=== PATIENT | male | born 1980 | race Native Hawaiian/Other Pacific Islander ===

== ENCOUNTER 2017-08-17 01:06 | Emergency (ER) | payer MEDICAID ==
[~2017-08-17] VITALS: Ht 175.3 cm; Wt 131.8 kg
[2017-08-17] MEDS ORDERED: LISI-661 PO (01:13)
[2017-08-17] MEDS ORDERED: ATOR20TA86 PO (01:13)
[2017-08-17] MEDS ORDERED: METF500T4 PO (01:13)
[2017-08-17] MEDS ORDERED: INDO25 PO (01:13)
[2017-08-17] MEDS ORDERED: ATOR20TA65 PO (01:13)
[2017-08-17 01:23] LABS: GLUCOSE,POINT OF CARE 194 MG/DL (70-110)
[2017-08-17 01:42] LABS: APPEARANCE,URINE CLEAR (CLEAR); GLUCOSE, URINE (UA) NEGATIVE (NEGATIVE); KETONES,URINE NEGATIVE (NEGATIVE); LEUKOCYTE ESTERASE ,URINE NEGATIVE (NEGATIVE); OCCULT BLOOD,URINE NEGATIVE (NEGATIVE); PROTEIN,URINE NEGATIVE (NEGATIVE)
[2017-08-17 01:43] LABS: BASOPHILS # (AUTO) 0.03 K/uL (0.00-0.20); BASOPHILS % (AUTO) 0.3 % (0.0-2.0); EOSINOPHILS # (AUTO) 0.13 K/uL (0.00-0.70); EOSINOPHILS % (AUTO) 1.28 % (1.0-6.0); HEMOGLOBIN 15.6 g/dL (13.5-17.5); LYMPHOCYTES # (AUTO) 1.8 K/uL (1.0-4.8); LYMPHOCYTES % (AUTO) 17.2 % (22.0-44.0); MEAN CORPUSCULAR HEMOGLOBIN 28.2 pg (26.0-34.0); MEAN CORPUSCULAR HGB CONC 33.9 G/dL (31.0-37.0); MEAN CORPUSCULAR VOLUME 83 fL (80-100); MONOCYTES # (AUTO) 0.7 K/uL (0.1-1.0); MONOCYTES % (AUTO) 6.1 % (2.0-9.0); NEUTROPHILS # (AUTO) 7.9 K/uL (1.8-7.7); NEUTROPHILS % (AUTO) 75.1 % (40.0-70.0); PLATELET COUNT (AUTO) 273 K/uL (150-450); RED BLOOD CELL COUNT(AUTO) 5.52 MIL/uL (4.50-5.90); RED CELL DISTRIBUTION WIDTH 14.9 % (11.5-14.5); WHITE BLOOD COUNT (AUTO) 10.5 K/uL (4.5-11.0)
[2017-08-17 01:44] LABS: ADD UA MICROSCOPIC NO
[2017-08-17 01:57] LABS: CALCIUM, TOTAL 9.5 mg/dL (8.8-10.5); CREATININE 1.34 mg/dL (0.60-1.30); POTASSIUM 4.1 mmol/L (3.5-5.1)
[2017-08-17 02:03] LABS: ALBUMIN 4.3 g/dL (3.4-5.0); BILIRUBIN,TOTAL 0.4 mg/dL (0.1-1.0); TOTAL PROTEIN, SERUM 8.3 g/dL (6.4-8.2)
[2017-08-17] MEDS ORDERED: SODIUM CHLORIDE 0.9% 1,000 ML IV ONE (06:15)
[2017-08-17] MEDS ORDERED: ONDANSETRON HCL 4 MG/2 ML VIAL IVP ONE (06:15)
[2017-08-17 07:39] VITALS: BP 135/90
== END 2017-08-17 07:49 | disposition home or self-care (01) ==
LOC: EMS 01:07
DX: R10.10 Upper abdominal pain, unspecified (principal); R11.2 Nausea with vomiting, unspecified; E78.00 Pure hypercholesterolemia, unspecified; E11.9 Type 2 diabetes mellitus without complications; I10 Essential (primary) hypertension; M19.90 Unspecified osteoarthritis, unspecified site; M10.9 Gout, unspecified
CPT/HCPCS: 36415; 80053; 81003; 82962; 83690; 85025; 96361; 96374; 99284; J2405; J7030

== ENCOUNTER 2018-04-26 12:00 | Emergency (ER) | payer MEDICAID ==
[~2018-04-26] VITALS: Ht 175.3 cm; Wt 118.0 kg
[~2018-04-26 12:00] MED LIST: ATOR20TA65 PO; ATOR20TA86 PO; INDO25 PO; LISI-661 PO; METF500T6 PO
[2018-04-26] MEDS ORDERED: PROB500T26 PO (12:17)
[2018-04-26] MEDS ORDERED: SUCR1TAB PO (12:17)
[2018-04-26] MEDS ORDERED: ALBU0.212 IH (12:17)
[2018-04-26] MEDS ORDERED: OMEP10 PO (12:17)
[2018-04-26] MEDS ORDERED: COLC0.6T67 PO (12:19)
[2018-04-26] MEDS ORDERED: KETOROLAC TROMETHAMINE 30 MG/ML VIAL IVP ONE (12:30)
[2018-04-26] MEDS ORDERED: SODIUM CHLORIDE 0.9% 1,000 ML IV ONE (12:30)
[2018-04-26 12:45] LABS: BASOPHILS % (AUTO) 0.3 % (0.0-2.0); EOSINOPHILS % (AUTO) 0.3 % (1.0-6.0); HEMATOCRIT 48.2 % (41-53); HEMOGLOBIN 16.3 g/dL (13.5-17.5); LYMPHOCYTES % (AUTO) 11.5 % (22.0-44.0); MEAN CORPUSCULAR HEMOGLOBIN 28.2 pg (26.0-34.0); MEAN CORPUSCULAR HGB CONC 33.9 G/dL (31.0-37.0); MEAN CORPUSCULAR VOLUME 83 fL (80-100); MONOCYTES # (AUTO) 0.2 K/uL (0.1-1.0); MONOCYTES % (AUTO) 2.3 % (2.0-9.0); NEUTROPHILS # (AUTO) 7.3 K/uL (1.8-7.7); PLATELET COUNT (AUTO) 268 K/uL (150-450); RED BLOOD CELL COUNT(AUTO) 5.79 MIL/uL (4.50-5.90); RED CELL DISTRIBUTION WIDTH 15.1 % (11.5-14.5)
[2018-04-26] MEDS ORDERED: ONDANSETRON HCL 4 MG/2 ML VIAL IVP ONE (12:45)
[2018-04-26 12:58] LABS: NEUTROPHILS % (AUTO) 85.6 % (40.0-70.0)
[2018-04-26 13:12] LABS: ANION GAP 9 mmol/L (8-16); CALCIUM, TOTAL 9.2 mg/dL (8.8-10.5); CARBON DIOXIDE 29 mmol/L (22-29); CHLORIDE 102 mmol/L (98-107); CREATININE 1.06 mg/dL (0.60-1.30); GLOMERULAR FILTR. RATE CALC > 60 mL/min (>60); GLUCOSE,RANDOM 132 mg/dL (70-110); POTASSIUM 4.5 mmol/L (3.5-5.1); SODIUM SERUM 140 mmol/L (136-145); UREA NITROGEN, BLOOD 15 mg/dL (7-18)
[2018-04-26 13:19] LABS: ALANINE AMINOTRANSFERASE 29 U/L (12-78); ALBUMIN 4.2 g/dL (3.4-5.0); ALKALINE PHOSPHATASE 105 U/L (46-116); ASPARTATE AMINOTRANSFERASE 22 U/L (15-37); BILIRUBIN,TOTAL 0.6 mg/dL (0.1-1.0); LIPASE 224 U/L (73-393); TOTAL PROTEIN, SERUM 8.3 g/dL (6.4-8.2)
[2018-04-26 13:29] VITALS: BP 148/88
[2018-04-26] MEDS ORDERED: ONDANSETRON HCL 4 MG TABLET PO ONE (14:00)
== END 2018-04-26 14:08 | disposition home or self-care (01) ==
LOC: EMS 12:02
DX: K29.70 Gastritis, unspecified, without bleeding (principal); I10 Essential (primary) hypertension; E78.00 Pure hypercholesterolemia, unspecified; E11.9 Type 2 diabetes mellitus without complications
CPT/HCPCS: 36415; 76705; 80053; 83690; 85025; 96374; 96375; 99285; J1885; J2405; J7030; Q0162

== ENCOUNTER 2018-05-04 13:18 | Emergency (ER) | payer MEDICAID ==
[~2018-05-04] VITALS: Ht 175.3 cm; Wt 118.2 kg
[~2018-05-04 13:18] MED LIST changes: +ALBU0.212 IH; +COLC0.6T67 PO; +OMEP10 PO; +PROB500T26 PO; +SUCR1TAB PO
[2018-05-04] MEDS ORDERED: ONDANSETRON HCL 4 MG/2 ML VIAL IVP ONE (15:00)
[2018-05-04 16:00] LABS: BASOPHILS % (AUTO) 0.8 % (0.0-2.0); EOSINOPHILS % (AUTO) 0.5 % (1.0-6.0); HEMATOCRIT 48.9 % (41-53); HEMOGLOBIN 16.3 g/dL (13.5-17.5); LYMPHOCYTES # (AUTO) 1.1 K/uL (1.0-4.8); LYMPHOCYTES % (AUTO) 12.7 % (22.0-44.0); MEAN CORPUSCULAR HEMOGLOBIN 28.2 pg (26.0-34.0); MEAN CORPUSCULAR HGB CONC 33.4 G/dL (31.0-37.0); MEAN CORPUSCULAR VOLUME 84 fL (80-100); MONOCYTES # (AUTO) 0.3 K/uL (0.1-1.0); MONOCYTES % (AUTO) 3.9 % (2.0-9.0); NEUTROPHILS % (AUTO) 82.1 % (40.0-70.0); PLATELET COUNT (AUTO) 275 K/uL (150-450); RED BLOOD CELL COUNT(AUTO) 5.79 MIL/uL (4.50-5.90); RED CELL DISTRIBUTION WIDTH 15.4 % (11.5-14.5)
[2018-05-04 16:07] LABS: ANION GAP 6 mmol/L (8-16); CARBON DIOXIDE 29 mmol/L (22-29); CHLORIDE 104 mmol/L (98-107); CREATININE 1.06 mg/dL (0.60-1.30); GLOMERULAR FILTR. RATE CALC > 60 mL/min (>60); GLUCOSE,RANDOM 128 mg/dL (70-110); POTASSIUM 4.2 mmol/L (3.5-5.1); SODIUM SERUM 139 mmol/L (136-145); UREA NITROGEN, BLOOD 20 mg/dL (7-18)
[2018-05-04 16:13] LABS: ALANINE AMINOTRANSFERASE 30 U/L (12-78); ALBUMIN 4.2 g/dL (3.4-5.0); ALKALINE PHOSPHATASE 100 U/L (46-116); ASPARTATE AMINOTRANSFERASE 25 U/L (15-37); BILIRUBIN,TOTAL 0.9 mg/dL (0.1-1.0); LIPASE 198 U/L (73-393); TOTAL PROTEIN, SERUM 8.3 g/dL (6.4-8.2)
[2018-05-04 17:10] VITALS: BP 140/84
== END 2018-05-04 17:18 | disposition home or self-care (01) ==
LOC: EMS 13:20
DX: K29.70 Gastritis, unspecified, without bleeding (principal); I10 Essential (primary) hypertension; E11.9 Type 2 diabetes mellitus without complications; E78.00 Pure hypercholesterolemia, unspecified
CPT/HCPCS: 36415; 80053; 83690; 85025; 96374; 99284; J2405

== ENCOUNTER 2018-05-09 12:35 | Emergency (ER) | payer MEDICAID ==
[~2018-05-09] VITALS: Ht 175.3 cm; Wt 118.2 kg
[~2018-05-09 12:35] MED LIST changes: -ATOR20TA65 PO
[2018-05-09 12:53] LABS: GLUCOSE,POINT OF CARE 119 MG/DL (70-110)
[2018-05-09] MEDS ORDERED: GuaiFENesin/D-METHORPHAN [SUGAR-FREE] 200-20MG/10 ML SYRUP UDCUP PO ONE (13:45)
[2018-05-09 14:22] VITALS: BP 120/66
== END 2018-05-09 14:27 | disposition home or self-care (01) ==
LOC: EMS 12:36
DX: J06.9 Acute upper respiratory infection, unspecified (principal); H61.112 Acquired deformity of pinna, left ear; F17.210 Nicotine dependence, cigarettes, uncomplicated; F12.10 Cannabis abuse, uncomplicated; I10 Essential (primary) hypertension; E11.9 Type 2 diabetes mellitus without complications; M19.90 Unspecified osteoarthritis, unspecified site; E78.00 Pure hypercholesterolemia, unspecified; Z79.899 Other long term (current) drug therapy
CPT/HCPCS: 99283

== ENCOUNTER 2018-05-11 11:16 | Emergency (ER) | payer MEDICAID ==
[~2018-05-11] VITALS: Ht 175.3 cm; Wt 118.2 kg
[2018-05-11] MEDS ORDERED: DiphenhydrAMINE HCL 50 MG/ML VIAL IVP ONE (11:30)
[2018-05-11] MEDS ORDERED: SODIUM CHLORIDE 0.9% 1,000 ML IV ONE (11:30)
[2018-05-11] MEDS ORDERED: PB/HYOSCY/ATR/SCOP/LIDO/MAALOX 55 ML BOTTLE PO ONE (11:30)
[2018-05-11] MEDS ORDERED: HALOPERIDOL LACTATE 5 MG/ML VIAL IVP ONE (11:30)
[2018-05-11 11:36] LABS: BASOPHILS % (AUTO) 0.4 % (0.0-2.0); EOSINOPHILS % (AUTO) 0.7 % (1.0-6.0); HEMOGLOBIN 15.4 g/dL (13.5-17.5); LYMPHOCYTES # (AUTO) 0.9 K/uL (1.0-4.8); LYMPHOCYTES % (AUTO) 9.8 % (22.0-44.0); MEAN CORPUSCULAR HEMOGLOBIN 28.4 pg (26.0-34.0); MEAN CORPUSCULAR HGB CONC 33.5 G/dL (31.0-37.0); MEAN CORPUSCULAR VOLUME 85 fL (80-100); MONOCYTES # (AUTO) 0.5 K/uL (0.1-1.0); MONOCYTES % (AUTO) 5.3 % (2.0-9.0); NEUTROPHILS # (AUTO) 7.7 K/uL (1.8-7.7); NEUTROPHILS % (AUTO) 83.8 % (40.0-70.0); PLATELET COUNT (AUTO) 244 K/uL (150-450); RED BLOOD CELL COUNT(AUTO) 5.43 MIL/uL (4.50-5.90); RED CELL DISTRIBUTION WIDTH 15.9 % (11.5-14.5)
[2018-05-11 11:46] LABS: ANION GAP 6 mmol/L (8-16); CALCIUM, TOTAL 9.4 mg/dL (8.8-10.5); CARBON DIOXIDE 29 mmol/L (22-29); CHLORIDE 103 mmol/L (98-107); CREATININE 1.13 mg/dL (0.60-1.30); GLOMERULAR FILTR. RATE CALC > 60 mL/min (>60); GLUCOSE,RANDOM 139 mg/dL (70-110); SODIUM SERUM 138 mmol/L (136-145); UREA NITROGEN, BLOOD 19 mg/dL (7-18)
[2018-05-11 11:52] LABS: ALANINE AMINOTRANSFERASE 33 U/L (12-78); ALBUMIN 4.1 g/dL (3.4-5.0); ALKALINE PHOSPHATASE 106 U/L (46-116); ASPARTATE AMINOTRANSFERASE 27 U/L (15-37); BILIRUBIN,TOTAL 0.8 mg/dL (0.1-1.0); LIPASE 286 U/L (73-393); TOTAL PROTEIN, SERUM 8.2 g/dL (6.4-8.2)
[2018-05-11 14:15] LABS: APPEARANCE,URINE CLEAR (CLEAR); BILIRUBIN,URINE NEGATIVE (NEGATIVE); GLUCOSE, URINE (UA) NEGATIVE (NEGATIVE); KETONES,URINE TRACE mg/dL (NEGATIVE); LEUKOCYTE ESTERASE ,URINE NEGATIVE (NEGATIVE); NITRATE,URINE NEGATIVE (NEGATIVE); OCCULT BLOOD,URINE NEGATIVE (NEGATIVE); PH,URINE 5.5 (5.0-8.0); PROTEIN,URINE NEGATIVE (NEGATIVE); UROBILINOGEN,URINE 0.2 mg/dL (<=1.0)
[2018-05-11 14:17] LABS: AMPHET/METH SCREEN,URINE NEGATIVE (NEGATIVE); BARBITURATE SCREEN, URINE NEGATIVE (NEGATIVE); BENZODIAZEPINES SCREEN,URINE NEGATIVE (NEGATIVE); CANNABINOID SCREEN,URINE POSITIVE (NEGATIVE); COCAINE SCREEN,URINE NEGATIVE (NEGATIVE); METHADONE SCREEN, URINE NEGATIVE (NEGATIVE); OPIATE SCREEN,URINE NEGATIVE (NEGATIVE)
[2018-05-11 14:19] LABS: PHENCYCLIDINE SCREEN,URINE NEGATIVE (NEGATIVE)
[2018-05-11 14:43] VITALS: BP 113/82
== END 2018-05-11 15:04 | disposition home or self-care (01) ==
LOC: EMS 11:24
DX: K29.70 Gastritis, unspecified, without bleeding (principal); F41.9 Anxiety disorder, unspecified; R11.2 Nausea with vomiting, unspecified; F12.90 Cannabis use, unspecified, uncomplicated; F17.210 Nicotine dependence, cigarettes, uncomplicated; E11.9 Type 2 diabetes mellitus without complications; E78.00 Pure hypercholesterolemia, unspecified; I10 Essential (primary) hypertension; M19.90 Unspecified osteoarthritis, unspecified site
CPT/HCPCS: 36415; 80053; 80307; 81003; 83690; 85025; 96361; 96374; 96375; 99285; 99406; J1200; J1630; J7030; Z7610

== ENCOUNTER 2018-05-21 14:48 | Emergency (ER) | payer MEDICAID ==
[~2018-05-21] VITALS: Ht 175.3 cm; Wt 113.6 kg
[~2018-05-21 14:48] MED LIST changes: -ALBU0.212 IH; +ALBU0.212 NEB
[2018-05-21 15:32] LABS: BASOPHILS % (AUTO) 0.6 % (0.0-2.0); EOSINOPHILS % (AUTO) 0.6 % (1.0-6.0); HEMATOCRIT 48.7 % (41-53); HEMOGLOBIN 16.8 g/dL (13.5-17.5); LYMPHOCYTES # (AUTO) 1.5 K/uL (1.0-4.8); LYMPHOCYTES % (AUTO) 14.5 % (22.0-44.0); MEAN CORPUSCULAR HEMOGLOBIN 28.9 pg (26.0-34.0); MEAN CORPUSCULAR HGB CONC 34.4 G/dL (31.0-37.0); MEAN CORPUSCULAR VOLUME 84 fL (80-100); MONOCYTES # (AUTO) 0.6 K/uL (0.1-1.0); MONOCYTES % (AUTO) 6.5 % (2.0-9.0); NEUTROPHILS # (AUTO) 7.8 K/uL (1.8-7.7); NEUTROPHILS % (AUTO) 77.8 % (40.0-70.0); PLATELET COUNT (AUTO) 282 K/uL (150-450)
[2018-05-21] MEDS ORDERED: OMEP20 PO (15:43)
[2018-05-21] MEDS ORDERED: ATOR40TA28 PO (15:43)
[2018-05-21] MEDS ORDERED: LISI-662 PO (15:43)
[2018-05-21 15:45] LABS: ANION GAP 7 mmol/L (8-16); CALCIUM, TOTAL 9.3 mg/dL (8.8-10.5); CARBON DIOXIDE 30 mmol/L (22-29); CHLORIDE 99 mmol/L (98-107); CREATININE 1.11 mg/dL (0.60-1.30); GLOMERULAR FILTR. RATE CALC > 60 mL/min (>60); GLUCOSE,RANDOM 121 mg/dL (70-110); POTASSIUM 3.3 mmol/L (3.5-5.1); SODIUM SERUM 136 mmol/L (136-145); UREA NITROGEN, BLOOD 10 mg/dL (7-18)
[2018-05-21] MEDS ORDERED: METOCLOPRAMIDE HCL 5 MG/ML 2 ML VIAL IVP ONE (15:45)
[2018-05-21] MEDS ORDERED: KETOROLAC TROMETHAMINE 30 MG/ML VIAL IVP ONE (15:45)
[2018-05-21 16:09] LABS: ALANINE AMINOTRANSFERASE 33 U/L (12-78); ALKALINE PHOSPHATASE 107 U/L (46-116); ASPARTATE AMINOTRANSFERASE 41 U/L (15-37); BILIRUBIN,TOTAL 1.3 mg/dL (0.1-1.0); CREATINE KINASE MB 1.3 ng/mL (0-5); CREATINE KINASE, TOTAL 368 U/L (39-308); LIPASE 143 U/L (73-393); TOTAL PROTEIN, SERUM 8.1 g/dL (6.4-8.2)
[2018-05-21] MEDS ORDERED: SODIUM CHLORIDE 0.9% 1,000 ML IV ONE (16:45)
[2018-05-21] MEDS ORDERED: POTASSIUM CHLORIDE 20 MEQ ER TABLET PO ONE (17:00)
[2018-05-21 17:22] VITALS: BP 107/59
== END 2018-05-21 17:44 | disposition home or self-care (01) ==
LOC: EMS 14:50
DX: R11.2 Nausea with vomiting, unspecified (principal); E11.9 Type 2 diabetes mellitus without complications; E78.00 Pure hypercholesterolemia, unspecified; I10 Essential (primary) hypertension; F17.210 Nicotine dependence, cigarettes, uncomplicated; F12.90 Cannabis use, unspecified, uncomplicated
CPT/HCPCS: 71045; 80053; 82550; 82553; 82962; 83690; 84484; 85025; 93005; 96361; 96374; 96375; 99285; J1885; J2765; J7030; 29515

== ENCOUNTER 2018-05-21 22:26 | Inpatient (IN) | payer MEDICAID ==
[~2018-05-21] VITALS: Ht 175.3 cm; Wt 113.6 kg
[~2018-05-21 22:26] MED LIST changes: +ATOR40TA28 PO; +LISI-662 PO; +OMEP20 PO
[2018-05-21 23:43] LABS: GLUCOSE,POINT OF CARE 115 MG/DL (70-110)
[2018-05-22] MEDS ORDERED: MAGNESIUM HYDROXIDE SUSPENSION 30 ML UDCUP PO PRN (02:00)
[2018-05-22] MEDS ORDERED: MAG HYDROX/AL HYDROX/SIMETH ES 30 ML SUSPENSION UDCUP PO PRN (02:00)
[2018-05-22] MEDS ORDERED: ACETAMINOPHEN 325 MG TABLET PO PRN (02:00)
[2018-05-22] MEDS ORDERED: MAG HYDROX/AL HYDROX/SIMETH ES 30 ML SUSPENSION UDCUP PO ONE (02:15)
[2018-05-22] MEDS ORDERED: LORazepam 2 MG TABLET PO ONE (02:15)
[2018-05-22] MEDS ORDERED: DiphenhydrAMINE HCL 25 MG CAPSULE PO ONE (02:15)
[2018-05-22 02:24] LABS: BASOPHILS % (AUTO) 0.8 % (0.0-2.0); EOSINOPHILS % (AUTO) 0.9 % (1.0-6.0); HEMATOCRIT 47.6 % (41-53); LYMPHOCYTES # (AUTO) 2.6 K/uL (1.0-4.8); LYMPHOCYTES % (AUTO) 26.1 % (22.0-44.0); MEAN CORPUSCULAR HEMOGLOBIN 28.9 pg (26.0-34.0); MEAN CORPUSCULAR HGB CONC 33.7 G/dL (31.0-37.0); MEAN CORPUSCULAR VOLUME 86 fL (80-100); MONOCYTES # (AUTO) 0.7 K/uL (0.1-1.0); MONOCYTES % (AUTO) 7.2 % (2.0-9.0); NEUTROPHILS # (AUTO) 6.5 K/uL (1.8-7.7); PLATELET COUNT (AUTO) 274 K/uL (150-450); RED BLOOD CELL COUNT(AUTO) 5.56 MIL/uL (4.50-5.90)
[2018-05-22 02:31] LABS: ANION GAP 3 mmol/L (8-16); CARBON DIOXIDE 35 mmol/L (22-29); CHLORIDE 100 mmol/L (98-107); CREATININE 1.27 mg/dL (0.60-1.30); GLOMERULAR FILTR. RATE CALC > 60 mL/min (>60); GLUCOSE,RANDOM 117 mg/dL (70-110); POTASSIUM 3.4 mmol/L (3.5-5.1); SODIUM SERUM 138 mmol/L (136-145); UREA NITROGEN, BLOOD 11 mg/dL (7-18)
[2018-05-22 02:37] LABS: ALANINE AMINOTRANSFERASE 32 U/L (12-78); ALKALINE PHOSPHATASE 102 U/L (46-116); ASPARTATE AMINOTRANSFERASE 36 U/L (15-37); TOTAL PROTEIN, SERUM 7.9 g/dL (6.4-8.2)
[2018-05-22] MEDS ORDERED: POTASSIUM CHLORIDE 10% 40 MEQ/30 ML LIQUID UDCUP PO ONE (02:45)
[2018-05-22 10:15] VITALS: BP 123/91
[2018-05-22] MEDS: LORazepam 2 MG TABLET PO PRN ×2 (10:34→20:34)
[2018-05-22] MEDS ORDERED: ALBUTEROL SULFATE HFA 90 MCG/PUFF 8 GM INHALER IH PRN (14:30)
[2018-05-22] MEDS: SERTRALINE HCL 50 MG TABLET PO SCH (14:45)
[2018-05-22] MEDS: BusPIRone HCL 10 MG TABLET PO SCH (14:46)
[2018-05-22] MEDS: MetFORMIN HCL 500 MG TABLET PO SCH (17:25)
[2018-05-22 17:35] LABS: GLUCOSE,POINT OF CARE 95 MG/DL (70-110)
[2018-05-22] MEDS ORDERED: PROBENECID 500 MG TABLET PO SCH (19:36)
[2018-05-22 20:22] VITALS: BP 155/92
[2018-05-22] MEDS: COLCHICINE 0.6 MG TABLET PO SCH (20:34)
[2018-05-22] MEDS: HALOPERIDOL 5 MG TABLET PO PRN (20:35)
[2018-05-22] MEDS: ATORVASTATIN CALCIUM 40 MG TABLET PO SCH (20:59)
[2018-05-22] MEDS: ZOLPIDEM TARTRATE 10 MG TABLET PO PRN (22:44)
[2018-05-23] MEDS: HALOPERIDOL 5 MG TABLET PO PRN (04:01)
[2018-05-23] MEDS: LORazepam 2 MG TABLET PO PRN ×3 (04:02→23:47)
[2018-05-23 05:55] LABS: GLUCOMETER DEV NAME(LOC) 3EI B; GLUCOSE,POINT OF CARE 96 MG/DL (70-110)
[2018-05-23 06:10] LABS: CHOL/HDL RATIO 3.4 (4.2-7.3)
[2018-05-23] MEDS: MetFORMIN HCL 500 MG TABLET PO SCH ×2 (06:49→19:45)
[2018-05-23] MEDS: PROBENECID 500 MG TABLET PO SCH ×2 (09:00→16:14)
[2018-05-23] MEDS: OMEPRAZOLE 20 MG CAPSULE PO SCH (09:14)
[2018-05-23] MEDS: COLCHICINE 0.6 MG TABLET PO SCH ×2 (09:14→16:14)
[2018-05-23] MEDS: SERTRALINE HCL 50 MG TABLET PO SCH (09:15)
[2018-05-23] MEDS: BusPIRone HCL 10 MG TABLET PO SCH ×2 (09:15→16:35)
[2018-05-23] MEDS: LISINOPRIL 20 MG TABLET PO SCH (09:15)
[2018-05-23 10:11] VITALS: BP 139/92
[2018-05-23] MEDS ORDERED: MAGNESIUM HYDROXIDE SUSPENSION 30 ML UDCUP PO PRN (13:45)
[2018-05-23] MEDS ORDERED: ONDANSETRON HCL 4 MG TABLET PO PRN (13:45)
[2018-05-23] MEDS ORDERED: ACETAMINOPHEN 325 MG TABLET PO PRN (13:45)
[2018-05-23] MEDS ORDERED: MAG HYDROX/AL HYDROX/SIMETH ES 30 ML SUSPENSION UDCUP PO PRN (13:45)
[2018-05-23] MEDS ORDERED: POTASSIUM CHLORIDE 20 MEQ ER TABLET PO ONE (13:45)
[2018-05-23] MEDS ORDERED: PETROLATUM,WHITE 71 GM JELLY TP PRN (13:45)
[2018-05-23] MEDS ORDERED: DOCUSATE SODIUM 100 MG CAPSULE PO PRN (13:45)
[2018-05-23 16:22] LABS: GLUCOMETER DEV NAME(LOC) 3EI B; GLUCOSE,POINT OF CARE 126 MG/DL (70-110)
[2018-05-23 18:22] VITALS: BP 138/92
[2018-05-23] MEDS: ATORVASTATIN CALCIUM 40 MG TABLET PO SCH (20:07)
[2018-05-23] MEDS: ZOLPIDEM TARTRATE 10 MG TABLET PO PRN (20:08)
[2018-05-23 23:56] VITALS: BP 137/84
[2018-05-24 06:41] LABS: GLUCOMETER DEV NAME(LOC) 3EI B; GLUCOSE,POINT OF CARE 91 MG/DL (70-110)
[2018-05-24] MEDS: MetFORMIN HCL 500 MG TABLET PO SCH ×4 (07:04→18:15)
[2018-05-24] MEDS: SERTRALINE HCL 50 MG TABLET PO SCH (08:17)
[2018-05-24] MEDS: PROBENECID 500 MG TABLET PO SCH ×2 (08:17→16:39)
[2018-05-24] MEDS: OMEPRAZOLE 20 MG CAPSULE PO SCH (08:17)
[2018-05-24] MEDS: COLCHICINE 0.6 MG TABLET PO SCH ×2 (08:17→16:39)
[2018-05-24] MEDS: BusPIRone HCL 10 MG TABLET PO SCH ×2 (08:17→16:39)
[2018-05-24] MEDS: LISINOPRIL 20 MG TABLET PO SCH (08:17)
[2018-05-24] MEDS: LORazepam 2 MG TABLET PO PRN ×2 (08:19→12:42)
[2018-05-24] MEDS: HALOPERIDOL 5 MG TABLET PO PRN ×2 (08:19→12:42)
[2018-05-24] MEDS: NICOTINE 14 MG/24 HOUR PATCH TD SCH (09:00)
[2018-05-24 10:11] VITALS: BP 139/97
[2018-05-24 16:44] LABS: GLUCOMETER DEV NAME(LOC) 3EI B; GLUCOSE,POINT OF CARE 101 MG/DL (70-110)
[2018-05-24] MEDS: ATORVASTATIN CALCIUM 40 MG TABLET PO SCH (20:57)
[2018-05-25] MEDS: HALOPERIDOL 5 MG TABLET PO PRN (00:24)
[2018-05-25] MEDS: LORazepam 2 MG TABLET PO PRN (00:24)
[2018-05-25 06:04] LABS: GLUCOMETER DEV NAME(LOC) 3EI B; GLUCOSE,POINT OF CARE 109 MG/DL (70-110)
[2018-05-25] MEDS: MetFORMIN HCL 500 MG TABLET PO SCH (06:44)
[2018-05-25] MEDS: OMEPRAZOLE 20 MG CAPSULE PO SCH (09:01)
[2018-05-25] MEDS: LISINOPRIL 20 MG TABLET PO SCH (09:01)
[2018-05-25] MEDS: COLCHICINE 0.6 MG TABLET PO SCH (09:02)
[2018-05-25] MEDS: NICOTINE 14 MG/24 HOUR PATCH TD SCH (09:02)
[2018-05-25] MEDS: PROBENECID 500 MG TABLET PO SCH (09:02)
[2018-05-25] MEDS: SERTRALINE HCL 50 MG TABLET PO SCH (09:02)
[2018-05-25] MEDS: BusPIRone HCL 10 MG TABLET PO SCH (09:03)
[2018-05-25 10:00] VITALS: BP 119/76
[2018-05-25] MEDS ORDERED: SERT50TA12 PO (10:31)
[2018-05-25] MEDS ORDERED: BUSP10TA23 PO (10:37)
== END 2018-05-25 13:00 | disposition home or self-care (01) | DRG 754 ==
LOC: EMS 22:27 → AHU 05-22 08:41 → 3EI 05-22 19:00
PROVIDERS: ADMIT Psychiatry & Neurology Psychiatry; ATTEND Psychiatry & Neurology Psychiatry
DX: F32.9 Major depressive disorder, single episode, unspecified (principal); E11.9 Type 2 diabetes mellitus without complications; R45.851 Suicidal ideations; I10 Essential (primary) hypertension; E78.5 Hyperlipidemia, unspecified; E78.00 Pure hypercholesterolemia, unspecified; E87.6 Hypokalemia; F12.90 Cannabis use, unspecified, uncomplicated; F41.9 Anxiety disorder, unspecified; G47.33 Obstructive sleep apnea (adult) (pediatric); F17.210 Nicotine dependence, cigarettes, uncomplicated; J45.909 Unspecified asthma, uncomplicated; K21.9 Gastro-esophageal reflux disease without esophagitis; K29.70 Gastritis, unspecified, without bleeding; M10.9 Gout, unspecified; M19.90 Unspecified osteoarthritis, unspecified site; Z88.5 Allergy status to narcotic agent; Z79.899 Other long term (current) drug therapy
CPT/HCPCS: 94660; 99285; G0480

== ENCOUNTER 2018-06-01 19:27 | Emergency (ER) | payer MEDICAID ==
[~2018-06-01] VITALS: Ht 175.3 cm; Wt 112.0 kg
[~2018-06-01 19:27] MED LIST changes: -ALBU0.212 NEB; -ATOR20TA86 PO; +BUSP10TA23 PO; -INDO25 PO; -LISI-661 PO; -OMEP10 PO; +SERT50TA12 PO; -SUCR1TAB PO
[2018-06-01 20:14] LABS: GLUCOSE,POINT OF CARE 140 MG/DL (70-110)
[2018-06-01 20:26] LABS: BASOPHILS % (AUTO) 0.3 % (0.0-2.0); EOSINOPHILS % (AUTO) 0.1 % (1.0-6.0); HEMATOCRIT 47.7 % (41-53); HEMOGLOBIN 16.2 g/dL (13.5-17.5); LYMPHOCYTES # (AUTO) 0.7 K/uL (1.0-4.8); LYMPHOCYTES % (AUTO) 7.3 % (22.0-44.0); MEAN CORPUSCULAR HEMOGLOBIN 28.8 pg (26.0-34.0); MEAN CORPUSCULAR VOLUME 85 fL (80-100); MONOCYTES # (AUTO) 0.2 K/uL (0.1-1.0); MONOCYTES % (AUTO) 1.7 % (2.0-9.0); NEUTROPHILS # (AUTO) 8.5 K/uL (1.8-7.7); PLATELET COUNT (AUTO) 280 K/uL (150-450); RED BLOOD CELL COUNT(AUTO) 5.64 MIL/uL (4.50-5.90); RED CELL DISTRIBUTION WIDTH 15.4 % (11.5-14.5)
[2018-06-01 20:29] LABS: NEUTROPHILS % (AUTO) 90.6 % (40.0-70.0)
[2018-06-01 20:37] LABS: ANION GAP 12 mmol/L (8-16); CALCIUM, TOTAL 9.8 mg/dL (8.8-10.5); CARBON DIOXIDE 24 mmol/L (22-29); CHLORIDE 101 mmol/L (98-107); CREATININE 1.02 mg/dL (0.60-1.30); GLOMERULAR FILTR. RATE CALC > 60 mL/min (>60); GLUCOSE,RANDOM 143 mg/dL (70-110); POTASSIUM 3.9 mmol/L (3.5-5.1); SODIUM SERUM 137 mmol/L (136-145); UREA NITROGEN, BLOOD 21 mg/dL (7-18)
[2018-06-01 20:43] LABS: ALANINE AMINOTRANSFERASE 44 U/L (12-78); ALBUMIN 4.2 g/dL (3.4-5.0); ALKALINE PHOSPHATASE 99 U/L (46-116); ASPARTATE AMINOTRANSFERASE 32 U/L (15-37); BILIRUBIN,TOTAL 0.7 mg/dL (0.1-1.0); LIPASE 108 U/L (73-393); TOTAL PROTEIN, SERUM 8.2 g/dL (6.4-8.2)
[2018-06-01] MEDS ORDERED: METOCLOPRAMIDE HCL 5 MG/ML 2 ML VIAL IVP ONE (21:15)
[2018-06-01] MEDS ORDERED: SODIUM CHLORIDE 0.9% 1,000 ML IV ONE (21:15)
[2018-06-01] MEDS ORDERED: ONDANSETRON HCL 4 MG/2 ML VIAL IVP ONE ×2 (22:15→23:00)
[2018-06-01 22:22] LABS: APPEARANCE,URINE CLEAR (CLEAR); BILIRUBIN,URINE NEGATIVE (NEGATIVE); GLUCOSE, URINE (UA) NEGATIVE (NEGATIVE); KETONES,URINE >=80 mg/dL (NEGATIVE); LEUKOCYTE ESTERASE ,URINE NEGATIVE (NEGATIVE); NITRATE,URINE NEGATIVE (NEGATIVE); OCCULT BLOOD,URINE NEGATIVE (NEGATIVE); PROTEIN,URINE NEGATIVE (NEGATIVE)
[2018-06-01] MEDS ORDERED: KETOROLAC TROMETHAMINE 30 MG/ML VIAL IVP ONE (23:00)
[2018-06-02 00:37] VITALS: BP 138/77
== END 2018-06-02 01:10 | disposition home or self-care (01) ==
LOC: EMS 19:28
DX: R11.2 Nausea with vomiting, unspecified (principal); R10.84 Generalized abdominal pain; R00.0 Tachycardia, unspecified
CPT/HCPCS: 36415; 80053; 81003; 82962; 83690; 85025; 93005; 96361; 96374; 96375; 96376; 99285; J1885; J2405; J2765; J7030

== ENCOUNTER 2018-06-02 01:10 | Emergency (ER) | payer MEDICAID | END 2018-06-02 02:30 | disposition left against medical advice (07) | LOC: EMS 01:12 | DX: Z53.21 Procedure and treatment not carried out due to patient leaving prior to being seen by health care provider (principal) ==

== ENCOUNTER 2018-06-03 09:51 | Emergency (ER) | payer MEDICAID ==
[~2018-06-03] VITALS: Ht 175.3 cm; Wt 113.6 kg
[2018-06-03 10:09] LABS: GLUCOSE,POINT OF CARE 131 MG/DL (70-110)
[2018-06-03] MEDS ORDERED: SODIUM CHLORIDE 0.9% 1,000 ML IV ONE (10:30)
[2018-06-03] MEDS ORDERED: METOCLOPRAMIDE HCL 5 MG/ML 2 ML VIAL IVP ONE (10:30)
[2018-06-03] MEDS ORDERED: FentaNYL CITRATE-PF 100 MCG/2 ML VIAL IVP ONE (10:30)
[2018-06-03 10:36] LABS: BASOPHILS % (AUTO) 0.9 % (0.0-2.0); EOSINOPHILS % (AUTO) 1.2 % (1.0-6.0); HEMATOCRIT 48.3 % (41-53); HEMOGLOBIN 16.3 g/dL (13.5-17.5); LYMPHOCYTES # (AUTO) 2.3 K/uL (1.0-4.8); LYMPHOCYTES % (AUTO) 28.1 % (22.0-44.0); MEAN CORPUSCULAR HEMOGLOBIN 28.7 pg (26.0-34.0); MEAN CORPUSCULAR HGB CONC 33.8 G/dL (31.0-37.0); MEAN CORPUSCULAR VOLUME 85 fL (80-100); MONOCYTES # (AUTO) 0.5 K/uL (0.1-1.0); MONOCYTES % (AUTO) 6.3 % (2.0-9.0); NEUTROPHILS # (AUTO) 5.2 K/uL (1.8-7.7); NEUTROPHILS % (AUTO) 63.5 % (40.0-70.0); PLATELET COUNT (AUTO) 292 K/uL (150-450); RED CELL DISTRIBUTION WIDTH 15.5 % (11.5-14.5)
[2018-06-03 10:50] LABS: ANION GAP 16 mmol/L (8-16); CALCIUM, TOTAL 10.1 mg/dL (8.8-10.5); CARBON DIOXIDE 25 mmol/L (22-29); CHLORIDE 97 mmol/L (98-107); GLOMERULAR FILTR. RATE CALC > 60 mL/min (>60); GLUCOSE,RANDOM 114 mg/dL (70-110); POTASSIUM 3.6 mmol/L (3.5-5.1); SODIUM SERUM 138 mmol/L (136-145); UREA NITROGEN, BLOOD 21 mg/dL (7-18)
[2018-06-03 10:56] LABS: ALANINE AMINOTRANSFERASE 37 U/L (12-78); ALBUMIN 4.3 g/dL (3.4-5.0); ALKALINE PHOSPHATASE 97 U/L (46-116); ASPARTATE AMINOTRANSFERASE 28 U/L (15-37); BILIRUBIN,TOTAL 0.6 mg/dL (0.1-1.0); LIPASE 167 U/L (73-393)
[2018-06-03 11:01] VITALS: BP 132/79
[2018-06-03] MEDS ORDERED: MAG HYDROX/AL HYDROX/SIMETH ES 30 ML SUSPENSION UDCUP PO ONE (11:30)
[2018-06-03] MEDS ORDERED: ACETAMINOPHEN 500 MG TABLET PO ONE (11:30)
[2018-06-03 11:49] LABS: ACETONE,BLOOD NEGATIVE (NEGATIVE)
[2018-06-03] MEDS ORDERED: CefTRIAXone SODIUM 1 GM in DEXTROSE 5%-WATER 10 ML IV ONE (12:15)
== END 2018-06-03 12:55 | disposition home or self-care (01) ==
LOC: EMS 09:52
DX: K29.70 Gastritis, unspecified, without bleeding (principal); J18.9 Pneumonia, unspecified organism; F12.10 Cannabis abuse, uncomplicated; F17.210 Nicotine dependence, cigarettes, uncomplicated; I10 Essential (primary) hypertension; E11.9 Type 2 diabetes mellitus without complications; E78.00 Pure hypercholesterolemia, unspecified; K21.9 Gastro-esophageal reflux disease without esophagitis; M19.90 Unspecified osteoarthritis, unspecified site; Z88.8 Allergy status to other drugs, medicaments and biological substances; Z79.899 Other long term (current) drug therapy
CPT/HCPCS: 36415; 71045; 80053; 82009; 82962; 83690; 84484; 85025; 93005; 96361; 96374; 96375; 99285; G0480; J0696; J2765; J3010; J7030; J7060

== ENCOUNTER 2018-06-05 21:28 | Inpatient (IN) | payer MEDICAID ==
[~2018-06-05] VITALS: Ht 175.3 cm; Wt 110.9 kg
[2018-06-05 22:54] LABS: BASOPHILS % (AUTO) 0.6 % (0.0-2.0); EOSINOPHILS % (AUTO) 1.9 % (1.0-6.0); HEMATOCRIT 48.8 % (41-53); HEMOGLOBIN 16.4 g/dL (13.5-17.5); LYMPHOCYTES # (AUTO) 2.3 K/uL (1.0-4.8); LYMPHOCYTES % (AUTO) 17.3 % (22.0-44.0); MEAN CORPUSCULAR HEMOGLOBIN 28.7 pg (26.0-34.0); MEAN CORPUSCULAR HGB CONC 33.6 G/dL (31.0-37.0); MEAN CORPUSCULAR VOLUME 85 fL (80-100); MONOCYTES # (AUTO) 0.8 K/uL (0.1-1.0); MONOCYTES % (AUTO) 6.4 % (2.0-9.0); NEUTROPHILS # (AUTO) 9.7 K/uL (1.8-7.7); NEUTROPHILS % (AUTO) 73.8 % (40.0-70.0); PLATELET COUNT (AUTO) 320 K/uL (150-450); RED BLOOD CELL COUNT(AUTO) 5.72 MIL/uL (4.50-5.90); RED CELL DISTRIBUTION WIDTH 15.3 % (11.5-14.5)
[2018-06-05 23:08] LABS: ANION GAP 12 mmol/L (8-16); CARBON DIOXIDE 27 mmol/L (22-29); CHLORIDE 99 mmol/L (98-107); CREATININE 1.37 mg/dL (0.60-1.30); GLOMERULAR FILTR. RATE CALC 58 mL/min (>60); GLUCOSE,RANDOM 118 mg/dL (70-110); POTASSIUM 3.7 mmol/L (3.5-5.1); SODIUM SERUM 138 mmol/L (136-145); UREA NITROGEN, BLOOD 18 mg/dL (7-18)
[2018-06-05 23:21] LABS: ALANINE AMINOTRANSFERASE 42 U/L (12-78); ALBUMIN 4.3 g/dL (3.4-5.0); ALKALINE PHOSPHATASE 96 U/L (46-116); ASPARTATE AMINOTRANSFERASE 32 U/L (15-37); BILIRUBIN,TOTAL 0.4 mg/dL (0.1-1.0); TOTAL PROTEIN, SERUM 8.3 g/dL (6.4-8.2)
[2018-06-06] MEDS ORDERED: ACETAMINOPHEN 325 MG TABLET PO ONE (00:30)
[2018-06-06 01:00] LABS: AMPHET/METH SCREEN,URINE NEGATIVE (NEGATIVE); BARBITURATE SCREEN, URINE NEGATIVE (NEGATIVE); BENZODIAZEPINES SCREEN,URINE NEGATIVE (NEGATIVE); CANNABINOID SCREEN,URINE POSITIVE (NEGATIVE); COCAINE SCREEN,URINE NEGATIVE (NEGATIVE); METHADONE SCREEN, URINE NEGATIVE (NEGATIVE); OPIATE SCREEN,URINE NEGATIVE (NEGATIVE)
[2018-06-06 01:03] LABS: PHENCYCLIDINE SCREEN,URINE NEGATIVE (NEGATIVE)
[2018-06-06] MEDS ORDERED: DiphenhydrAMINE HCL 50 MG/ML VIAL IM ONE (01:15)
[2018-06-06] MEDS ORDERED: LORazepam 2 MG/ML VIAL IM ONE (01:15)
[2018-06-06] MEDS ORDERED: HALOPERIDOL LACTATE 5 MG/ML VIAL IM ONE (01:15)
[2018-06-06] MEDS ORDERED: ZOLPIDEM TARTRATE 10 MG TABLET PO PRN (01:30)
[2018-06-06 02:57] LABS: APPEARANCE,URINE CLEAR (CLEAR); BILIRUBIN,URINE NEGATIVE (NEGATIVE); GLUCOSE, URINE (UA) NEGATIVE (NEGATIVE); KETONES,URINE NEGATIVE (NEGATIVE); LEUKOCYTE ESTERASE ,URINE NEGATIVE (NEGATIVE); NITRATE,URINE NEGATIVE (NEGATIVE); OCCULT BLOOD,URINE NEGATIVE (NEGATIVE); PROTEIN,URINE NEGATIVE (NEGATIVE); UROBILINOGEN,URINE 0.2 mg/dL (<=1.0)
[2018-06-06] MEDS: LORazepam 2 MG TABLET PO PRN (12:18)
[2018-06-06] MEDS: HALOPERIDOL 5 MG TABLET PO PRN (12:18)
[2018-06-06] MEDS ORDERED: HYDROCODONE/ACETAMINOPHEN 5-325 MG TABLET PO ONE (12:30)
[2018-06-06] MEDS ORDERED: ONDANSETRON HCL 4 MG TABLET PO ONE (12:30)
[2018-06-06] MEDS ORDERED: AZITHROMYCIN 250 MG TABLET PO ONE (17:15)
[2018-06-07] MEDS: LORazepam 2 MG TABLET PO PRN ×3 (02:39→14:23)
[2018-06-07] MEDS: HALOPERIDOL 5 MG TABLET PO PRN ×3 (02:39→14:23)
[2018-06-07 19:54] VITALS: BP 143/97
[2018-06-07] MEDS: MetFORMIN HCL 500 MG TABLET PO SCH (20:30)
[2018-06-07 20:58] LABS: GLUCOMETER DEV NAME(LOC) 3EC; GLUCOSE,POINT OF CARE 135 MG/DL (70-110)
[2018-06-07] MEDS: ATORVASTATIN CALCIUM 40 MG TABLET PO SCH (21:00)
[2018-06-07] MEDS ORDERED: LORazepam 2 MG/ML VIAL ONE (21:08)
[2018-06-07] MEDS ORDERED: HALOPERIDOL LACTATE 5 MG/ML VIAL ONE ×2 (21:09→21:12)
[2018-06-07] MEDS ORDERED: DiphenhydrAMINE HCL 50 MG/ML VIAL ONE (21:09)
[2018-06-07] MEDS ORDERED: HALOPERIDOL LACTATE 5 MG/ML VIAL IM ONE (21:15)
[2018-06-07] MEDS ORDERED: LORazepam 2 MG/ML VIAL IM ONE (21:15)
[2018-06-07] MEDS ORDERED: DiphenhydrAMINE HCL 50 MG/ML VIAL IM ONE (21:15)
[2018-06-08] MEDS: LORazepam 2 MG TABLET PO PRN ×3 (05:57→23:57)
[2018-06-08] MEDS: MetFORMIN HCL 500 MG TABLET PO SCH ×2 (06:42→17:08)
[2018-06-08] MEDS: OMEPRAZOLE 20 MG CAPSULE PO SCH (08:09)
[2018-06-08] MEDS: PROBENECID 500 MG TABLET PO SCH ×2 (08:10→17:08)
[2018-06-08] MEDS: LISINOPRIL 20 MG TABLET PO SCH (08:10)
[2018-06-08] MEDS: COLCHICINE 0.6 MG TABLET PO SCH ×2 (08:10→17:08)
[2018-06-08 09:00] VITALS: BP 127/83
[2018-06-08] MEDS: HALOPERIDOL 5 MG TABLET PO PRN (10:06)
[2018-06-08] MEDS: SERTRALINE HCL 50 MG TABLET PO SCH (12:13)
[2018-06-08 16:38] LABS: GLUCOMETER DEV NAME(LOC) 3EC; GLUCOSE,POINT OF CARE 114 MG/DL (70-110)
[2018-06-08 16:56] VITALS: BP 120/74
[2018-06-08] MEDS: HYDROCODONE/ACETAMINOPHEN 5-325 MG TABLET PO PRN (17:09)
[2018-06-08] MEDS: AZITHROMYCIN 250 MG TABLET PO SCH (17:09)
[2018-06-08] MEDS: BusPIRone HCL 10 MG TABLET PO SCH (17:09)
[2018-06-08] MEDS: ATORVASTATIN CALCIUM 40 MG TABLET PO SCH (23:57)
[2018-06-09] MEDS ORDERED: PNEUMOCOCCAL VACCINE POLYVALENT 0.5 ML VIAL [PPSV23] IM ONE (03:15)
[2018-06-09 06:29] LABS: GLUCOMETER DEV NAME(LOC) 3EC; GLUCOSE,POINT OF CARE 122 MG/DL (70-110)
[2018-06-09] MEDS: MetFORMIN HCL 500 MG TABLET PO SCH (06:58)
[2018-06-09] MEDS: BusPIRone HCL 10 MG TABLET PO SCH (08:06)
[2018-06-09] MEDS: OMEPRAZOLE 20 MG CAPSULE PO SCH (08:06)
[2018-06-09] MEDS: PROBENECID 500 MG TABLET PO SCH ×2 (08:07→15:46)
[2018-06-09] MEDS: COLCHICINE 0.6 MG TABLET PO SCH ×2 (08:07→15:46)
[2018-06-09] MEDS: LISINOPRIL 20 MG TABLET PO SCH (08:07)
[2018-06-09] MEDS: SERTRALINE HCL 50 MG TABLET PO SCH (08:07)
[2018-06-09] MEDS: AZITHROMYCIN 250 MG TABLET PO SCH (08:08)
[2018-06-09] MEDS: HYDROCODONE/ACETAMINOPHEN 5-325 MG TABLET PO PRN ×2 (08:11→15:47)
[2018-06-09 08:16] VITALS: BP 136/80
[2018-06-09 09:14] VITALS: BP 128/74
[2018-06-09 14:14] LABS: APPEARANCE,URINE CLEAR (CLEAR); BILIRUBIN,URINE NEGATIVE (NEGATIVE); GLUCOSE, URINE (UA) NEGATIVE (NEGATIVE); KETONES,URINE NEGATIVE (NEGATIVE); LEUKOCYTE ESTERASE ,URINE NEGATIVE (NEGATIVE); NITRATE,URINE NEGATIVE (NEGATIVE); OCCULT BLOOD,URINE NEGATIVE (NEGATIVE); PH,URINE 5.5 (5.0-8.0); PROTEIN,URINE NEGATIVE (NEGATIVE); UROBILINOGEN,URINE 0.2 mg/dL (<=1.0)
[2018-06-09 14:22] LABS: BACTERIA,URINE None Seen /HPF (None Seen); RBC,URINE None Seen /HPF (0-2); SQUAMOUS EPITHELIAL CELL,UR Rare /LPF (None Seen); WBC,URINE None Seen /HPF (0-5)
[2018-06-09 14:23] LABS: HYALINE CASTS, URINE 0-2 /LPF (None Seen)
[2018-06-09 16:00] VITALS: BP 134/68
[2018-06-09] MEDS ORDERED: AZIT500T PO (16:48)
== END 2018-06-09 17:50 | disposition home or self-care (01) | DRG 754 ==
LOC: EMS 21:30 → 3EC 06-07 18:24
PROVIDERS: ADMIT Psychiatry & Neurology Psychiatry; ATTEND Psychiatry & Neurology Psychiatry
DX: F32.9 Major depressive disorder, single episode, unspecified (principal); E11.9 Type 2 diabetes mellitus without complications; I10 Essential (primary) hypertension; E78.5 Hyperlipidemia, unspecified; D72.829 Elevated white blood cell count, unspecified; M10.9 Gout, unspecified; F10.10 Alcohol abuse, uncomplicated; F17.200 Nicotine dependence, unspecified, uncomplicated; F12.90 Cannabis use, unspecified, uncomplicated; E78.00 Pure hypercholesterolemia, unspecified; K21.9 Gastro-esophageal reflux disease without esophagitis; F41.9 Anxiety disorder, unspecified; M19.90 Unspecified osteoarthritis, unspecified site; Z79.899 Other long term (current) drug therapy; Z88.8 Allergy status to other drugs, medicaments and biological substances; Z88.5 Allergy status to narcotic agent; Z71.6 Tobacco abuse counseling
CPT/HCPCS: 87081; 94660; 96372; 99291; G0480; J1200; J1630; J2060; Q0162

== ENCOUNTER 2019-01-29 13:40 | Inpatient (IN) | payer MEDICAID ==
[~2019-01-29] VITALS: Ht 175.3 cm; Wt 102.0 kg
[~2019-01-29 13:40] MED LIST changes: +AZIT500T PO; +METF-960 PO; -METF500T6 PO
[2019-01-29 14:44] LABS: GLUCOSE,POINT OF CARE 95 MG/DL (70-110)
[2019-01-29] MEDS ORDERED: METO5TAB95 PO (14:53)
[2019-01-29] MEDS ORDERED: ONDA4 PO (14:53)
[2019-01-29] MEDS ORDERED: ALLO100T PO (14:53)
[2019-01-29 15:21] LABS: ANION GAP 9 mmol/L (8-16); CARBON DIOXIDE 29 mmol/L (22-29); CHLORIDE 100 mmol/L (98-107); GLOMERULAR FILTR. RATE CALC > 60 mL/min (>60); GLUCOSE,RANDOM 86 mg/dL (70-110); POTASSIUM 3.6 mmol/L (3.5-5.1); SODIUM SERUM 138 mmol/L (136-145); UREA NITROGEN, BLOOD 14 mg/dL (7-18)
[2019-01-29 15:28] LABS: ALANINE AMINOTRANSFERASE 18 U/L (12-78); ALBUMIN 4.1 g/dL (3.4-5.0); ALKALINE PHOSPHATASE 108 U/L (46-116); ASPARTATE AMINOTRANSFERASE 23 U/L (15-37); TOTAL PROTEIN, SERUM 8.4 g/dL (6.4-8.2)
[2019-01-29 15:29] LABS: BASOPHILS % (AUTO) 0.5 % (0.0-2.0); EOSINOPHILS % (AUTO) 1.2 % (1.0-6.0); HEMATOCRIT 51.2 % (41-53); HEMOGLOBIN 16.7 g/dL (13.5-17.5); LYMPHOCYTES % (AUTO) 26.6 % (22.0-44.0); MEAN CORPUSCULAR HEMOGLOBIN 27.7 pg (26.0-34.0); MEAN CORPUSCULAR HGB CONC 32.7 G/dL (31.0-37.0); MEAN CORPUSCULAR VOLUME 85 fL (80-100); MONOCYTES # (AUTO) 0.5 K/uL (0.1-1.0); MONOCYTES % (AUTO) 6.9 % (2.0-9.0); NEUTROPHILS # (AUTO) 4.8 K/uL (1.8-7.7); NEUTROPHILS % (AUTO) 64.8 % (40.0-70.0); PLATELET COUNT (AUTO) 323 K/uL (150-450); RED BLOOD CELL COUNT(AUTO) 6.06 MIL/uL (4.50-5.90); RED CELL DISTRIBUTION WIDTH 15.9 % (11.5-14.5)
[2019-01-29 15:36] LABS: AMPHET/METH SCREEN,URINE NEGATIVE (NEGATIVE); BARBITURATE SCREEN, URINE NEGATIVE (NEGATIVE); BENZODIAZEPINES SCREEN,URINE NEGATIVE (NEGATIVE); CANNABINOID SCREEN,URINE POSITIVE (NEGATIVE); COCAINE SCREEN,URINE NEGATIVE (NEGATIVE); METHADONE SCREEN, URINE NEGATIVE (NEGATIVE); OPIATE SCREEN,URINE NEGATIVE (NEGATIVE); PHENCYCLIDINE SCREEN,URINE NEGATIVE (NEGATIVE)
[2019-01-29] MEDS ORDERED: PROMETHAZINE HCL 25 MG TABLET PO PRN (16:15)
[2019-01-29] MEDS ORDERED: HydrOXYzine PAMOATE 50 MG CAPSULE PO PRN (16:15)
[2019-01-29] MEDS ORDERED: MAGNESIUM HYDROXIDE SUSPENSION 30 ML UDCUP PO PRN (16:15)
[2019-01-29] MEDS ORDERED: LOPERAMIDE HCL 2 MG CAPSULE PO PRN (16:15)
[2019-01-29] MEDS ORDERED: ACETAMINOPHEN 325 MG TABLET PO PRN (16:15)
[2019-01-29] MEDS ORDERED: MAG HYDROX/AL HYDROX/SIMETH ES 30 ML SUSPENSION UDCUP PO PRN (16:15)
[2019-01-29] MEDS ORDERED: GuaiFENesin/D-METHORPHAN [SUGAR-FREE] 200-20MG/10 ML SYRUP UDCUP PO PRN (16:15)
[2019-01-29] MEDS ORDERED: TUBERCULIN, PURIFIED PROTEIN DERIVATIVE 5 TU/0.1 ML SYG ID ONE (16:15)
[2019-01-29] MEDS ORDERED: ALLO300 PO (16:20)
[2019-01-29 16:43] LABS: GLUCOSE,POINT OF CARE 91 MG/DL (70-110)
[2019-01-29] MEDS: THIAMINE HCL 100 MG TABLET PO SCH (17:46)
[2019-01-29 19:33] VITALS: BP 132/80
[2019-01-29] MEDS ORDERED: PNEUMOCOCCAL VACCINE POLYVALENT 0.5 ML VIAL [PPSV23] IM ONE (20:15)
[2019-01-29] MEDS: LORazepam 2 MG TABLET PO PRN (21:14)
[2019-01-29] MEDS: ZOLPIDEM TARTRATE 10 MG TABLET PO PRN (21:14)
[2019-01-29] MEDS ORDERED: GLUCAGON,HUMAN RECOMBINANT 1 MG VIAL IM PRN (22:30)
[2019-01-29] MEDS ORDERED: INSULIN LISPRO 100 UNITS/ML SQ PRN (22:30)
[2019-01-29] MEDS ORDERED: DEXTROSE 50%-WATER 25 GM/50 ML SYG IVP PRN (22:30)
[2019-01-30] MEDS: QUEtiapine FUMARATE 100 MG TABLET PO PRN ×3 (01:40→20:39)
[2019-01-30] MEDS: LORazepam 2 MG TABLET PO PRN ×3 (01:40→19:41)
[2019-01-30 06:24] LABS: GLUCOMETER DEV NAME(LOC) 3E.C; GLUCOSE,POINT OF CARE 91 MG/DL (70-110)
[2019-01-30] MEDS: INSULIN LISPRO 100 UNITS/ML SQ PRN (06:45)
[2019-01-30 07:02] LABS: HEMOGLOBIN A1C 5.4 % (4.5-6.2)
[2019-01-30 07:20] LABS: CHOL/HDL RATIO 4.8 (4.2-7.3); FREE T4 (FREE THYROXINE) 1.28 ng/dL (0.76-1.46); THYROID STIMULATING HORMONE 1.57 uIU/mL (0.36-3.74)
[2019-01-30] MEDS ORDERED: MetFORMIN HCL 500 MG TABLET PO SCH (07:30)
[2019-01-30 07:36] LABS: URIC ACID 7.9 mg/dL (2.6-7.2)
[2019-01-30 08:00] VITALS: BP 121/78
[2019-01-30] MEDS: MULTIVITAMINS WITH MINERALS, THERAPEUTIC TABLET PO SCH (09:56)
[2019-01-30] MEDS: THIAMINE HCL 100 MG TABLET PO SCH ×2 (09:56→17:10)
[2019-01-30] MEDS: ALLOPURINOL 300 MG TABLET PO SCH (09:56)
[2019-01-30] MEDS: DULoxetine HCL 20 MG CAPSULE PO SCH (09:56)
[2019-01-30] MEDS: OMEPRAZOLE 20 MG CAPSULE PO SCH (09:56)
[2019-01-30] MEDS: LISINOPRIL 20 MG TABLET PO SCH (09:56)
[2019-01-30] MEDS: FOLIC ACID 1 MG TABLET PO SCH (09:56)
[2019-01-30 11:19] LABS: GLUCOMETER DEV NAME(LOC) 3E.C; GLUCOSE,POINT OF CARE 104 MG/DL (70-110)
[2019-01-30] MEDS ORDERED: ONDANSETRON HCL 4 MG TABLET PO PRN (11:30)
[2019-01-30 16:00] VITALS: BP 106/65
[2019-01-30] MEDS: PROBENECID 500 MG TABLET PO SCH (17:10)
[2019-01-30] MEDS: COLCHICINE 0.6 MG TABLET PO SCH (17:10)
[2019-01-30 17:24] LABS: GLUCOMETER DEV NAME(LOC) 3E.C; GLUCOSE,POINT OF CARE 124 MG/DL (70-110)
[2019-01-30] MEDS: GABAPENTIN 300 MG CAPSULE PO SCH (20:01)
[2019-01-30] MEDS: ATORVASTATIN CALCIUM 40 MG TABLET PO SCH (20:01)
[2019-01-31] MEDS: ZOLPIDEM TARTRATE 10 MG TABLET PO PRN (01:27)
[2019-01-31] MEDS: LORazepam 2 MG TABLET PO PRN ×2 (01:27→08:45)
[2019-01-31 06:45] LABS: GLUCOMETER DEV NAME(LOC) 3E.C; GLUCOSE,POINT OF CARE 82 MG/DL (70-110)
[2019-01-31] MEDS: COLCHICINE 0.6 MG TABLET PO SCH ×2 (07:05→17:38)
[2019-01-31 08:00] VITALS: BP 122/55
[2019-01-31] MEDS ORDERED: HALOPERIDOL LACTATE 5 MG/ML VIAL ONE (08:09)
[2019-01-31] MEDS ORDERED: DiphenhydrAMINE HCL 50 MG/ML VIAL ONE (08:09)
[2019-01-31] MEDS ORDERED: LORazepam 2 MG/ML VIAL ONE (08:09)
[2019-01-31] MEDS ORDERED: DiphenhydrAMINE HCL 50 MG/ML VIAL IM ONE (08:15)
[2019-01-31] MEDS ORDERED: HALOPERIDOL LACTATE 5 MG/ML VIAL IM ONE (08:15)
[2019-01-31] MEDS ORDERED: LORazepam 2 MG/ML VIAL IM ONE (08:15)
[2019-01-31] MEDS: METOCLOPRAMIDE HCL 5 MG TABLET PO SCH (08:37)
[2019-01-31] MEDS: PROBENECID 500 MG TABLET PO SCH ×2 (08:37→17:38)
[2019-01-31] MEDS: OMEPRAZOLE 20 MG CAPSULE PO SCH (08:38)
[2019-01-31] MEDS: DULoxetine HCL 20 MG CAPSULE PO SCH (08:38)
[2019-01-31] MEDS: LISINOPRIL 20 MG TABLET PO SCH (08:38)
[2019-01-31] MEDS: MULTIVITAMINS WITH MINERALS, THERAPEUTIC TABLET PO SCH (08:40)
[2019-01-31] MEDS: MetFORMIN HCL 500 MG TABLET PO SCH (08:40)
[2019-01-31] MEDS: GABAPENTIN 300 MG CAPSULE PO SCH ×4 (08:40→20:46)
[2019-01-31] MEDS: THIAMINE HCL 100 MG TABLET PO SCH ×2 (08:40→17:38)
[2019-01-31] MEDS: ALLOPURINOL 300 MG TABLET PO SCH (08:46)
[2019-01-31] MEDS: FOLIC ACID 1 MG TABLET PO SCH (08:47)
[2019-01-31] MEDS: QUEtiapine FUMARATE 100 MG TABLET PO PRN ×2 (08:57→17:41)
[2019-01-31] MEDS: OxyCODONE HCL/ACETAMINOPHEN 5-325 MG TABLET PO PRN ×2 (11:52→18:14)
[2019-01-31 17:44] LABS: GLUCOMETER DEV NAME(LOC) 3E.C; GLUCOSE,POINT OF CARE 93 MG/DL (70-110)
[2019-01-31 18:07] VITALS: BP 111/73
[2019-01-31] MEDS: ATORVASTATIN CALCIUM 40 MG TABLET PO SCH (20:46)
[2019-02-01] MEDS: LORazepam 2 MG TABLET PO PRN ×4 (01:17→20:04)
[2019-02-01] MEDS: ZOLPIDEM TARTRATE 10 MG TABLET PO PRN ×2 (01:17→22:01)
[2019-02-01 06:09] LABS: GLUCOMETER DEV NAME(LOC) 3E.C; GLUCOSE,POINT OF CARE 87 MG/DL (70-110)
[2019-02-01] MEDS: COLCHICINE 0.6 MG TABLET PO SCH ×2 (06:40→16:43)
[2019-02-01] MEDS: PROBENECID 500 MG TABLET PO SCH ×2 (08:15→16:43)
[2019-02-01] MEDS: ALLOPURINOL 300 MG TABLET PO SCH (08:15)
[2019-02-01] MEDS: FOLIC ACID 1 MG TABLET PO SCH (08:15)
[2019-02-01] MEDS: MetFORMIN HCL 500 MG TABLET PO SCH (08:15)
[2019-02-01] MEDS: MULTIVITAMINS WITH MINERALS, THERAPEUTIC TABLET PO SCH (08:15)
[2019-02-01] MEDS: THIAMINE HCL 100 MG TABLET PO SCH ×2 (08:16→16:43)
[2019-02-01] MEDS: METOCLOPRAMIDE HCL 5 MG TABLET PO SCH (08:16)
[2019-02-01] MEDS: GABAPENTIN 300 MG CAPSULE PO SCH ×2 (08:16→13:00)
[2019-02-01] MEDS: OMEPRAZOLE 20 MG CAPSULE PO SCH (08:16)
[2019-02-01] MEDS: LISINOPRIL 20 MG TABLET PO SCH (08:17)
[2019-02-01] MEDS: DULoxetine HCL 30 MG CAPSULE PO SCH (08:17)
[2019-02-01] MEDS: QUEtiapine FUMARATE 100 MG TABLET PO PRN ×2 (08:19→22:01)
[2019-02-01 08:48] VITALS: BP 118/72
[2019-02-01] MEDS: OxyCODONE HCL/ACETAMINOPHEN 5-325 MG TABLET PO PRN ×2 (08:48→18:56)
[2019-02-01 09:47] VITALS: BP 113/68
[2019-02-01] MEDS: GABAPENTIN 400 MG CAPSULE PO SCH ×2 (16:43→20:04)
[2019-02-01 17:44] LABS: GLUCOMETER DEV NAME(LOC) 3E.C; GLUCOSE,POINT OF CARE 112 MG/DL (70-110)
[2019-02-01 18:56] VITALS: BP 101/62
[2019-02-01] MEDS: ATORVASTATIN CALCIUM 40 MG TABLET PO SCH (20:04)
[2019-02-02] MEDS: LORazepam 2 MG TABLET PO PRN ×2 (01:30→10:52)
[2019-02-02] MEDS: QUEtiapine FUMARATE 100 MG TABLET PO PRN ×2 (03:29→10:52)
[2019-02-02 06:34] LABS: GLUCOMETER DEV NAME(LOC) 3E.C; GLUCOSE,POINT OF CARE 89 MG/DL (70-110)
[2019-02-02] MEDS: COLCHICINE 0.6 MG TABLET PO SCH (06:41)
[2019-02-02] MEDS: INSULIN LISPRO 100 UNITS/ML SQ PRN (06:41)
[2019-02-02] MEDS: THIAMINE HCL 100 MG TABLET PO SCH (07:29)
[2019-02-02] MEDS: OMEPRAZOLE 20 MG CAPSULE PO SCH (07:29)
[2019-02-02] MEDS: PROBENECID 500 MG TABLET PO SCH (07:30)
[2019-02-02] MEDS: LISINOPRIL 20 MG TABLET PO SCH (07:30)
[2019-02-02] MEDS: GABAPENTIN 400 MG CAPSULE PO SCH ×2 (07:30→11:34)
[2019-02-02] MEDS: FOLIC ACID 1 MG TABLET PO SCH (07:30)
[2019-02-02] MEDS: DULoxetine HCL 30 MG CAPSULE PO SCH (07:30)
[2019-02-02] MEDS: MULTIVITAMINS WITH MINERALS, THERAPEUTIC TABLET PO SCH (07:30)
[2019-02-02] MEDS: ALLOPURINOL 300 MG TABLET PO SCH (07:32)
[2019-02-02] MEDS: METOCLOPRAMIDE HCL 5 MG TABLET PO SCH (07:32)
[2019-02-02] MEDS: MetFORMIN HCL 500 MG TABLET PO SCH (07:33)
[2019-02-02 07:37] VITALS: BP 108/70
[2019-02-02] MEDS: OxyCODONE HCL/ACETAMINOPHEN 5-325 MG TABLET PO PRN (07:37)
[2019-02-02 08:31] VITALS: BP 108/70
[2019-02-02] MEDS ORDERED: DULoxetine HCL 20 MG CAPSULE PO SCH (09:00)
[2019-02-02] MEDS ORDERED: ATOMOXETINE HCL 40 MG CAPSULE PO SCH (09:00)
[2019-02-02] MEDS ORDERED: ATOM40 PO (10:41)
[2019-02-02] MEDS ORDERED: GABA-533 PO (10:42)
[2019-02-02] MEDS ORDERED: DULO20CA30 PO (10:42)
[2019-02-02] MEDS ORDERED: NALT50TA PO (11:48)
== END 2019-02-02 12:00 | disposition home or self-care (01) | DRG 751 ==
LOC: EMS 13:41 → 3EC 17:14
PROVIDERS: ADMIT Psychiatry & Neurology Psychiatry; ATTEND Psychiatry & Neurology Psychiatry
DX: F33.9 Major depressive disorder, recurrent, unspecified (principal); R45.851 Suicidal ideations; E11.9 Type 2 diabetes mellitus without complications; K21.9 Gastro-esophageal reflux disease without esophagitis; M10.9 Gout, unspecified; M19.90 Unspecified osteoarthritis, unspecified site; I10 Essential (primary) hypertension; F17.210 Nicotine dependence, cigarettes, uncomplicated; F12.90 Cannabis use, unspecified, uncomplicated; E78.5 Hyperlipidemia, unspecified; E78.00 Pure hypercholesterolemia, unspecified; F14.90 Cocaine use, unspecified, uncomplicated; F15.90 Other stimulant use, unspecified, uncomplicated; Z88.5 Allergy status to narcotic agent; Z88.1 Allergy status to other antibiotic agents; Z91.5 Personal history of self-harm; Z91.19 Patient's noncompliance with other medical treatment and regimen; Z82.5 Family history of asthma and other chronic lower respiratory diseases; Z83.3 Family history of diabetes mellitus
CPT/HCPCS: 80074; 83036; 84439; 84443; 84550; 86592; G0480; J1200; J1630; J2060

== ENCOUNTER 2019-04-09 00:15 | Inpatient (IN) | payer MEDICAID ==
[~2019-04-09] VITALS: Ht 175.3 cm; Wt 101.6 kg
[~2019-04-09 00:15] MED LIST changes: +ALLO300 PO; +ATOM40 PO; -AZIT500T PO; -BUSP10TA23 PO; +DULO20CA30 PO; +GABA-533 PO; +METO5TAB95 PO; +NALT50TA PO; -SERT50TA12 PO
[2019-04-09] MEDS ORDERED: SERT50TA12 PO (02:49)
[2019-04-09] MEDS ORDERED: BUSP10TA3 PO (02:49)
[2019-04-09 03:04] LABS: GLUCOSE,POINT OF CARE 115 MG/DL (70-110)
[2019-04-09 03:24] LABS: AMPHET/METH SCREEN,URINE NEGATIVE (NEGATIVE); BARBITURATE SCREEN, URINE NEGATIVE (NEGATIVE); BENZODIAZEPINES SCREEN,URINE NEGATIVE (NEGATIVE); CANNABINOID SCREEN,URINE POSITIVE (NEGATIVE); COCAINE SCREEN,URINE NEGATIVE (NEGATIVE); METHADONE SCREEN, URINE NEGATIVE (NEGATIVE); OPIATE SCREEN,URINE NEGATIVE (NEGATIVE); PHENCYCLIDINE SCREEN,URINE NEGATIVE (NEGATIVE)
[2019-04-09 03:25] LABS: EOSINOPHILS % (AUTO) 1.9 % (1.0-6.0); HEMATOCRIT 51.2 % (41-53); HEMOGLOBIN 16.5 g/dL (13.5-17.5); LYMPHOCYTES # (AUTO) 2.8 K/uL (1.0-4.8); LYMPHOCYTES % (AUTO) 22.3 % (22.0-44.0); MEAN CORPUSCULAR HEMOGLOBIN 27.4 pg (26.0-34.0); MEAN CORPUSCULAR HGB CONC 32.2 G/dL (31.0-37.0); MEAN CORPUSCULAR VOLUME 85 fL (80-100); MONOCYTES # (AUTO) 1.1 K/uL (0.1-1.0); MONOCYTES % (AUTO) 9.1 % (2.0-9.0); NEUTROPHILS # (AUTO) 8.2 K/uL (1.8-7.7); NEUTROPHILS % (AUTO) 65.7 % (40.0-70.0); PLATELET COUNT (AUTO) 335 K/uL (150-450); RED CELL DISTRIBUTION WIDTH 15.6 % (11.5-14.5)
[2019-04-09 03:32] LABS: ANION GAP 9 mmol/L (8-16); CALCIUM, TOTAL 9.6 mg/dL (8.8-10.5); CARBON DIOXIDE 29 mmol/L (22-29); CHLORIDE 101 mmol/L (98-107); GLOMERULAR FILTR. RATE CALC > 60 mL/min (>60); GLUCOSE,RANDOM 115 mg/dL (70-110); POTASSIUM 4.1 mmol/L (3.5-5.1); SODIUM SERUM 139 mmol/L (136-145); UREA NITROGEN, BLOOD 17 mg/dL (7-18)
[2019-04-09 03:38] LABS: ALANINE AMINOTRANSFERASE 34 U/L (12-78); ALBUMIN 4.3 g/dL (3.4-5.0); ALKALINE PHOSPHATASE 135 U/L (46-116); ASPARTATE AMINOTRANSFERASE 28 U/L (15-37); BILIRUBIN,TOTAL 0.7 mg/dL (0.1-1.0); TOTAL PROTEIN, SERUM 8.6 g/dL (6.4-8.2)
[2019-04-09] MEDS ORDERED: DiphenhydrAMINE HCL 50 MG/ML VIAL IM ONE (03:45)
[2019-04-09] MEDS ORDERED: HALOPERIDOL LACTATE 5 MG/ML VIAL IM ONE (03:45)
[2019-04-09] MEDS ORDERED: LORazepam 2 MG/ML VIAL IM ONE (03:45)
[2019-04-09] MEDS ORDERED: HALOPERIDOL 5 MG TABLET PO PRN (04:00)
[2019-04-09 07:39] LABS: GLUCOSE,POINT OF CARE 92 MG/DL (70-110)
[2019-04-09] MEDS ORDERED: DOCUSATE SODIUM 100 MG CAPSULE PO PRN (14:30)
[2019-04-09] MEDS ORDERED: MAG HYDROX/AL HYDROX/SIMETH ES 30 ML SUSPENSION UDCUP PO PRN (14:30)
[2019-04-09] MEDS ORDERED: MAGNESIUM HYDROXIDE SUSPENSION 30 ML UDCUP PO PRN (14:30)
[2019-04-09] MEDS ORDERED: CloNIDine HCL 0.1 MG TABLET PO PRN (14:30)
[2019-04-09] MEDS ORDERED: LOPERAMIDE HCL 2 MG CAPSULE PO PRN (14:30)
[2019-04-09] MEDS ORDERED: GuaiFENesin/D-METHORPHAN [SUGAR-FREE] 200-20MG/10 ML SYRUP UDCUP PO PRN (14:30)
[2019-04-09] MEDS ORDERED: ONDANSETRON HCL 4 MG TABLET PO PRN (14:30)
[2019-04-09] MEDS ORDERED: ACETAMINOPHEN 325 MG TABLET PO PRN (14:30)
[2019-04-09] MEDS ORDERED: ALBUTEROL SULFATE HFA 90 MCG/PUFF 8 GM INHALER IH PRN (14:30)
[2019-04-09] MEDS ORDERED: NICOTINE 14 MG/24 HOUR PATCH TD PRN (14:30)
[2019-04-09] MEDS ORDERED: PETROLATUM,WHITE 28 GM JELLY TP PRN (14:30)
[2019-04-09] MEDS ORDERED: KETOROLAC TROMETHAMINE 30 MG/ML VIAL ONE (14:51)
[2019-04-09] MEDS ORDERED: HYDROmorphone 2 MG/ML SYRINGE IM ONE (15:00)
[2019-04-09] MEDS ORDERED: PNEUMOCOCCAL VACCINE POLYVALENT 0.5 ML VIAL [PPSV23] IM ONE (21:15)
[2019-04-09 21:51] VITALS: BP 110/75
[2019-04-09 21:59] VITALS: BP 110/75
[2019-04-09 22:14] LABS: GLUCOMETER DEV NAME(LOC) BV3N.; GLUCOSE,POINT OF CARE 98 MG/DL (70-110)
[2019-04-09] MEDS: LORazepam 2 MG TABLET PO PRN (22:50)
[2019-04-09] MEDS: ZOLPIDEM TARTRATE 10 MG TABLET PO PRN (22:50)
[2019-04-10] VITALS (8 sets, daily range): BP systolic 116–147; BP diastolic 66–84
[2019-04-10] MEDS: LORazepam 2 MG TABLET PO PRN ×4 (03:50→19:02)
[2019-04-10 09:04] LABS: CHOL/HDL RATIO 4.9 (4.2-7.3)
[2019-04-10] MEDS ORDERED: INDOMETHACIN 25 MG CAPSULE PO PRN (12:45)
[2019-04-10] MEDS ORDERED: LORazepam 2 MG/ML VIAL IM ONE (13:00)
[2019-04-10] MEDS ORDERED: DiphenhydrAMINE HCL 50 MG/ML VIAL IM ONE (13:00)
[2019-04-10] MEDS ORDERED: HALOPERIDOL LACTATE 5 MG/ML VIAL IM ONE (13:00)
[2019-04-10] MEDS: TraMADol HCL 50 MG TABLET PO PRN ×2 (13:12→21:03)
[2019-04-10] MEDS: BusPIRone HCL 10 MG TABLET PO SCH ×2 (13:21→17:07)
[2019-04-10] MEDS ORDERED: ATORVASTATIN CALCIUM 40 MG TABLET PO SCH (21:00)
[2019-04-10] MEDS: ZOLPIDEM TARTRATE 10 MG TABLET PO PRN (21:03)
[2019-04-11 00:44] VITALS: BP 113/71
[2019-04-11] MEDS ORDERED: HALOPERIDOL LACTATE 5 MG/ML VIAL ONE (02:04)
[2019-04-11] MEDS ORDERED: LORazepam 2 MG/ML VIAL ONE (02:05)
[2019-04-11] MEDS ORDERED: DiphenhydrAMINE HCL 50 MG/ML VIAL ONE (02:05)
[2019-04-11] MEDS ORDERED: HALOPERIDOL LACTATE 5 MG/ML VIAL IM ONE (02:15)
[2019-04-11] MEDS ORDERED: LORazepam 2 MG/ML VIAL IM ONE (02:15)
[2019-04-11] MEDS ORDERED: DiphenhydrAMINE HCL 50 MG/ML VIAL IM ONE (02:15)
[2019-04-11] MEDS: LORazepam 2 MG TABLET PO PRN (04:02)
[2019-04-11] MEDS ORDERED: OMEPRAZOLE 20 MG CAPSULE PO SCH (09:00)
[2019-04-11] MEDS ORDERED: LISINOPRIL 20 MG TABLET PO SCH (09:00)
[2019-04-11] MEDS ORDERED: COLCHICINE 0.6 MG TABLET PO SCH (09:00)
[2019-04-11] MEDS ORDERED: SERTRALINE HCL 50 MG TABLET PO SCH (09:00)
[2019-04-11] MEDS ORDERED: ARIPiprazole 10 MG TABLET PO SCH (09:00)
[2019-04-11] MEDS ORDERED: ALLOPURINOL 300 MG TABLET PO SCH (09:00)
[2019-04-11] MEDS ORDERED: MetFORMIN HCL 500 MG TABLET PO SCH (09:00)
[2019-04-11] MEDS: BusPIRone HCL 10 MG TABLET PO SCH ×2 (09:25→13:08)
[2019-04-11 09:49] VITALS: BP 113/72
[2019-04-11] MEDS ORDERED: ARIP15TA2 PO (12:08)
[2019-04-12] MEDS ORDERED: ARIPiprazole 5 MG TABLET PO SCH (09:00)
== END 2019-04-11 14:49 | disposition home or self-care (01) | DRG 750 ==
LOC: EMS 00:15 → B3A 18:17
PROVIDERS: ADMIT Psychiatry & Neurology Psychiatry; ATTEND Psychiatry & Neurology Psychiatry
DX: F25.0 Schizoaffective disorder, bipolar type (principal); E11.9 Type 2 diabetes mellitus without complications; R45.851 Suicidal ideations; E78.00 Pure hypercholesterolemia, unspecified; E78.5 Hyperlipidemia, unspecified; F41.9 Anxiety disorder, unspecified; I10 Essential (primary) hypertension; K21.9 Gastro-esophageal reflux disease without esophagitis; M10.9 Gout, unspecified; F17.210 Nicotine dependence, cigarettes, uncomplicated; F14.10 Cocaine abuse, uncomplicated; Z71.51 Drug abuse counseling and surveillance of drug abuser; Z79.899 Other long term (current) drug therapy; Z91.19 Patient's noncompliance with other medical treatment and regimen; Z88.6 Allergy status to analgesic agent; Z88.5 Allergy status to narcotic agent
CPT/HCPCS: 96372; G0480; J1170; J1200; J1630; J1885; J2060

== ENCOUNTER 2020-07-08 02:00 | Inpatient (IN) | payer MEDICAID ==
[~2020-07-08] VITALS: Ht 175.3 cm; Wt 120.8 kg
[~2020-07-08 02:00] MED LIST changes: +ALLO-45 PO; -ALLO300 PO; +ARIP400S3 IM; -ATOM40 PO; +BUSP10TA3 PO; -COLC0.6T67 PO; +COLC0.6T73 PO; -DULO20CA30 PO; +GABA-1181 PO; -GABA-533 PO; +METF-444 PO; -METF-960 PO; -METO5TAB95 PO; -NALT50TA PO; -OMEP20 PO; +PROB500 PO; -PROB500T26 PO; +SERT50TA12 PO
[2020-07-08 02:26] LABS: GLUCOSE,POINT OF CARE 110 MG/DL (70-110)
[2020-07-08] MEDS: ALBUTEROL SULFATE HFA 90 MCG/PUFF 8 GM INHALER IH ONE (03:00)
[2020-07-08] MEDS ORDERED: HYDROCODONE/ACETAMINOPHEN 5-325 MG TABLET PO ONE (03:00)
[2020-07-08 03:36] LABS: AMPHET/METH SCREEN,URINE NEGATIVE (NEGATIVE); BARBITURATE SCREEN, URINE NEGATIVE (NEGATIVE); BENZODIAZEPINES SCREEN,URINE NEGATIVE (NEGATIVE); CANNABINOID SCREEN,URINE POSITIVE (NEGATIVE); COCAINE SCREEN,URINE NEGATIVE (NEGATIVE); METHADONE SCREEN, URINE NEGATIVE (NEGATIVE); OPIATE SCREEN,URINE NEGATIVE (NEGATIVE)
[2020-07-08 03:40] LABS: PHENCYCLIDINE SCREEN,URINE NEGATIVE (NEGATIVE)
[2020-07-08] MEDS ORDERED: LORazepam 2 MG/ML VIAL ONE (03:43)
[2020-07-08] MEDS ORDERED: DiphenhydrAMINE HCL 50 MG/ML VIAL ONE (03:43)
[2020-07-08] MEDS ORDERED: HALOPERIDOL LACTATE 5 MG/ML VIAL ONE (03:43)
[2020-07-08] MEDS ORDERED: HALOPERIDOL LACTATE 5 MG/ML VIAL IM ONE (04:00)
[2020-07-08] MEDS ORDERED: DiphenhydrAMINE HCL 50 MG/ML VIAL IM ONE (04:00)
[2020-07-08] MEDS ORDERED: LORazepam 2 MG/ML VIAL IM ONE (04:00)
[2020-07-08] MEDS ORDERED: NICOTINE 14 MG/24 HOUR PATCH TD PRN (08:00)
[2020-07-08] MEDS ORDERED: MAG HYDROX/AL HYDROX/SIMETH ES 30 ML SUSPENSION UDCUP PO PRN (08:00)
[2020-07-08] MEDS ORDERED: ALBUTEROL SULFATE HFA 90 MCG/PUFF 8 GM INHALER IH PRN (08:00)
[2020-07-08] MEDS ORDERED: PETROLATUM,WHITE 28 GM JELLY TP PRN (08:00)
[2020-07-08] MEDS ORDERED: CloNIDine HCL 0.1 MG TABLET PO PRN (08:00)
[2020-07-08] MEDS ORDERED: LOPERAMIDE HCL 2 MG CAPSULE PO PRN (08:00)
[2020-07-08] MEDS ORDERED: MAGNESIUM HYDROXIDE SUSPENSION 30 ML UDCUP PO PRN (08:00)
[2020-07-08] MEDS ORDERED: DOCUSATE SODIUM 100 MG CAPSULE PO PRN (08:00)
[2020-07-08] MEDS ORDERED: GuaiFENesin/D-METHORPHAN [SUGAR-FREE] 200-20MG/10 ML SYRUP UDCUP PO PRN (08:00)
[2020-07-08] MEDS ORDERED: ONDANSETRON HCL 4 MG TABLET PO PRN (08:00)
[2020-07-08 08:32] VITALS: BP 143/78
[2020-07-08] MEDS: ALLOPURINOL 300 MG TABLET PO SCH ×2 (09:00→13:48)
[2020-07-08] MEDS ORDERED: PNEUMOCOCCAL VACCINE POLYVALENT 0.5 ML VIAL [PPSV23] IM ONE (10:30)
[2020-07-08] MEDS: SERTRALINE HCL 100 MG TABLET PO SCH (13:13)
[2020-07-08] MEDS: ARIPiprazole 15 MG TABLET PO SCH (13:13)
[2020-07-08] MEDS: TraMADol HCL 50 MG TABLET PO PRN ×2 (13:17→21:36)
[2020-07-08 13:18] VITALS: BP 128/89
[2020-07-08] MEDS: BusPIRone HCL 10 MG TABLET PO SCH ×2 (13:47→16:38)
[2020-07-08] MEDS: COLCHICINE 0.6 MG TABLET PO SCH ×2 (13:48→16:16)
[2020-07-08] MEDS: PROBENECID 500 MG TABLET PO SCH ×2 (13:49→16:38)
[2020-07-08] MEDS: LORazepam 2 MG TABLET PO PRN ×2 (16:11→21:36)
[2020-07-08 16:29] VITALS: BP 136/84
[2020-07-08] MEDS: MetFORMIN HCL 500 MG TABLET PO SCH (16:38)
[2020-07-08] MEDS: LISINOPRIL 20 MG TABLET PO SCH (20:26)
[2020-07-08] MEDS: ATORVASTATIN CALCIUM 40 MG TABLET PO SCH (20:26)
[2020-07-09 00:49] VITALS: BP 141/76
[2020-07-09] MEDS: OxyCODONE HCL/ACETAMINOPHEN 5-325 MG TABLET PO PRN ×2 (00:49→16:11)
[2020-07-09] MEDS: MetFORMIN HCL 500 MG TABLET PO SCH ×2 (06:24→16:11)
[2020-07-09] MEDS: PredniSONE 20 MG TABLET PO SCH (07:50)
[2020-07-09] MEDS: PROBENECID 500 MG TABLET PO SCH ×2 (07:50→16:11)
[2020-07-09] MEDS: SERTRALINE HCL 100 MG TABLET PO SCH (07:51)
[2020-07-09] MEDS: BusPIRone HCL 10 MG TABLET PO SCH ×3 (07:51→16:11)
[2020-07-09] MEDS: ARIPiprazole 15 MG TABLET PO SCH (07:51)
[2020-07-09] MEDS: COLCHICINE 0.6 MG TABLET PO SCH ×2 (07:51→16:11)
[2020-07-09] MEDS: ALLOPURINOL 300 MG TABLET PO SCH (07:51)
[2020-07-09] MEDS: TraMADol HCL 50 MG TABLET PO PRN ×2 (07:52→16:12)
[2020-07-09 08:24] LABS: BASOPHILS % (AUTO) 0.5 % (0.0-2.0); EOSINOPHILS % (AUTO) 1.6 % (1.0-6.0); HEMATOCRIT 54.2 % (41-53); HEMOGLOBIN 17.7 g/dL (13.5-17.5); LYMPHOCYTES # (AUTO) 2.1 K/uL (1.0-4.8); LYMPHOCYTES % (AUTO) 17.1 % (22.0-44.0); MEAN CORPUSCULAR HEMOGLOBIN 28.8 pg (26.0-34.0); MEAN CORPUSCULAR HGB CONC 32.6 G/dL (31.0-37.0); MEAN CORPUSCULAR VOLUME 88 fL (80-100); MONOCYTES # (AUTO) 1.2 K/uL (0.1-1.0); MONOCYTES % (AUTO) 9.5 % (2.0-9.0); NEUTROPHILS # (AUTO) 8.7 K/uL (1.8-7.7); NEUTROPHILS % (AUTO) 71.3 % (40.0-70.0); PLATELET COUNT (AUTO) 297 K/uL (150-450); RED BLOOD CELL COUNT(AUTO) 6.15 MIL/uL (4.50-5.90); RED CELL DISTRIBUTION WIDTH 14.6 % (11.5-14.5)
[2020-07-09 08:30] VITALS: BP 148/68
[2020-07-09 08:51] LABS: HEMOGLOBIN A1C 5.9 % (3.8-5.6)
[2020-07-09 09:09] LABS: ALANINE AMINOTRANSFERASE 36 U/L (12-78); ALBUMIN 4.2 g/dL (3.4-5.0); ALKALINE PHOSPHATASE 106 U/L (46-116); ANION GAP 9 mmol/L (8-16); ASPARTATE AMINOTRANSFERASE 33 U/L (15-37); BILIRUBIN,TOTAL 1.4 mg/dL (0.1-1.0); CALCIUM, TOTAL 9.8 mg/dL (8.8-10.5); CARBON DIOXIDE 26 mmol/L (22-29); CHLORIDE 100 mmol/L (98-107); CHOL/HDL RATIO 5.5 (4.2-7.3); CHOLESTEROL 169 mg/dL (131-200); CREATININE 1.17 mg/dL (0.60-1.30); FREE T4 (FREE THYROXINE) 1.39 ng/dL (0.76-1.46); GLOMERULAR FILTR. RATE CALC > 60 mL/min (>60); GLUCOSE,RANDOM 175 mg/dL (70-110); HDL CHOLESTEROL 31 mg/dL (40-60); LDL CHOL (CALC.) 113 mg/dL (0-130); POTASSIUM 4.1 mmol/L (3.5-5.1); SODIUM SERUM 135 mmol/L (136-145); THYROID STIMULATING HORMONE 1.32 uIU/mL (0.36-3.74); TOTAL PROTEIN, SERUM 8.6 g/dL (6.4-8.2); TRIGLYCERIDES 125 mg/dL (15-150); UREA NITROGEN, BLOOD 13 mg/dL (7-18)
[2020-07-09] MEDS: HALOPERIDOL 5 MG TABLET PO PRN ×2 (09:56→16:11)
[2020-07-09] MEDS: LORazepam 2 MG TABLET PO PRN ×3 (09:56→20:36)
[2020-07-09 16:12] VITALS: BP 136/84
[2020-07-09] MEDS: ATORVASTATIN CALCIUM 40 MG TABLET PO SCH (20:36)
[2020-07-09] MEDS: LISINOPRIL 20 MG TABLET PO SCH (20:36)
[2020-07-09] MEDS: ZOLPIDEM TARTRATE 10 MG TABLET PO PRN (20:36)
[2020-07-10 00:20] VITALS: BP 128/76
[2020-07-10] MEDS: HALOPERIDOL 5 MG TABLET PO PRN ×2 (00:23→16:02)
[2020-07-10] MEDS: TraMADol HCL 50 MG TABLET PO PRN ×2 (00:23→16:02)
[2020-07-10] MEDS: LORazepam 2 MG TABLET PO PRN ×4 (04:39→20:02)
[2020-07-10] MEDS: OxyCODONE HCL/ACETAMINOPHEN 5-325 MG TABLET PO PRN ×2 (04:39→12:52)
[2020-07-10] MEDS: MetFORMIN HCL 500 MG TABLET PO SCH ×2 (06:02→16:02)
[2020-07-10] MEDS: PROBENECID 500 MG TABLET PO SCH ×2 (08:30→16:02)
[2020-07-10] MEDS: BusPIRone HCL 10 MG TABLET PO SCH ×3 (08:31→16:02)
[2020-07-10] MEDS: PredniSONE 20 MG TABLET PO SCH (08:31)
[2020-07-10] MEDS: ARIPiprazole 15 MG TABLET PO SCH (08:31)
[2020-07-10] MEDS: ALLOPURINOL 300 MG TABLET PO SCH (08:31)
[2020-07-10] MEDS: COLCHICINE 0.6 MG TABLET PO SCH ×2 (08:31→16:02)
[2020-07-10 08:41] VITALS: BP 134/107
[2020-07-10] MEDS: SERTRALINE HCL 100 MG TABLET PO SCH (09:04)
[2020-07-10 12:50] VITALS: BP 130/88
[2020-07-10 13:52] VITALS: BP 128/78
[2020-07-10 16:03] VITALS: BP 107/75
[2020-07-10 16:21] VITALS: BP 107/75
[2020-07-10] MEDS: LISINOPRIL 20 MG TABLET PO SCH (20:02)
[2020-07-10] MEDS: ATORVASTATIN CALCIUM 40 MG TABLET PO SCH (20:02)
[2020-07-10] MEDS: ZOLPIDEM TARTRATE 10 MG TABLET PO PRN (20:03)
[2020-07-11 04:29] VITALS: BP 126/78
[2020-07-11] MEDS: LORazepam 2 MG TABLET PO PRN (04:39)
[2020-07-11] MEDS: MetFORMIN HCL 500 MG TABLET PO SCH (07:00)
[2020-07-11] MEDS: SERTRALINE HCL 100 MG TABLET PO SCH (08:01)
[2020-07-11] MEDS: PROBENECID 500 MG TABLET PO SCH (08:01)
[2020-07-11] MEDS: ARIPiprazole 15 MG TABLET PO SCH (08:01)
[2020-07-11] MEDS: PredniSONE 20 MG TABLET PO SCH (08:01)
[2020-07-11] MEDS: ALLOPURINOL 300 MG TABLET PO SCH (08:01)
[2020-07-11] MEDS: COLCHICINE 0.6 MG TABLET PO SCH (08:03)
[2020-07-11] MEDS: BusPIRone HCL 10 MG TABLET PO SCH (08:05)
[2020-07-11] MEDS: OxyCODONE HCL/ACETAMINOPHEN 5-325 MG TABLET PO PRN (08:07)
[2020-07-11] MEDS: TraMADol HCL 50 MG TABLET PO PRN (08:07)
[2020-07-11 08:25] VITALS: BP 136/86
[2020-07-11] MEDS ORDERED: ARIP15TA2 PO (08:25)
[2020-07-11] MEDS ORDERED: ALLO-45 PO (08:30)
[2020-07-11] MEDS ORDERED: PRED20 PO (08:32)
== END 2020-07-11 09:50 | disposition home or self-care (01) | DRG 885 ==
LOC: EMS 02:00 → B3A 04:36
PROVIDERS: ADMIT Psychiatry & Neurology Child & Adolescent Psychiatry; ATTEND Psychiatry & Neurology Child & Adolescent Psychiatry
DX: F33.2 Major depressive disorder, recurrent severe without psychotic features (principal); R45.851 Suicidal ideations; D72.829 Elevated white blood cell count, unspecified; E11.9 Type 2 diabetes mellitus without complications; E78.00 Pure hypercholesterolemia, unspecified; E78.5 Hyperlipidemia, unspecified; F10.10 Alcohol abuse, uncomplicated; F12.10 Cannabis abuse, uncomplicated; G89.29 Other chronic pain; I10 Essential (primary) hypertension; J44.9 Chronic obstructive pulmonary disease, unspecified; K21.9 Gastro-esophageal reflux disease without esophagitis; M06.9 Rheumatoid arthritis, unspecified; M10.9 Gout, unspecified; M19.90 Unspecified osteoarthritis, unspecified site; F17.210 Nicotine dependence, cigarettes, uncomplicated; Z91.19 Patient's noncompliance with other medical treatment and regimen; Z28.21 Immunization not carried out because of patient refusal; Z88.5 Allergy status to narcotic agent; Z79.899 Other long term (current) drug therapy
CPT/HCPCS: 83036; 84439; 84443; J1200; J1630; J2060; J3535

== ENCOUNTER 2021-05-22 13:02 | Emergency (ER) | payer MEDICAID ==
[~2021-05-22] VITALS: Ht 172.7 cm; Wt 110.0 kg
[~2021-05-22 13:02] MED LIST changes: +ARIP15TA27 PO; -ARIP400S3 IM; -GABA-1181 PO; -LISI-662 PO; +LISI-894 PO; +PRED20 PO; +SERT-439 PO; -SERT50TA12 PO
[2021-05-22 14:15] LABS: BASOPHILS % (AUTO) 0.4 % (0.0-2.0); EOSINOPHILS % (AUTO) 0.3 % (1.0-6.0); HEMATOCRIT 53.8 % (41-53); HEMOGLOBIN 17.4 g/dL (13.5-17.5); LYMPHOCYTES # (AUTO) 0.9 K/uL (1.0-4.8); LYMPHOCYTES % (AUTO) 12.6 % (22.0-44.0); MEAN CORPUSCULAR HEMOGLOBIN 28.1 pg (26.0-34.0); MEAN CORPUSCULAR HGB CONC 32.3 G/dL (31.0-37.0); MEAN CORPUSCULAR VOLUME 87 fL (80-100); MONOCYTES # (AUTO) 0.2 K/uL (0.1-1.0); MONOCYTES % (AUTO) 3.2 % (2.0-9.0); NEUTROPHILS # (AUTO) 6.2 K/uL (1.8-7.7); NEUTROPHILS % (AUTO) 83.5 % (40.0-70.0); PLATELET COUNT (AUTO) 271 K/uL (150-450); RED BLOOD CELL COUNT(AUTO) 6.19 MIL/uL (4.50-5.90); RED CELL DISTRIBUTION WIDTH 14.9 % (11.5-14.5)
[2021-05-22] MEDS ORDERED: SERT-162 PO (14:18)
[2021-05-22 14:25] LABS: ANION GAP 7 mmol/L (8-16); CALCIUM, TOTAL 9.9 mg/dL (8.8-10.5); CARBON DIOXIDE 28 mmol/L (22-29); CHLORIDE 103 mmol/L (98-107); CREATININE 1.02 mg/dL (0.60-1.30); GLOMERULAR FILTR. RATE CALC > 60 mL/min (>60); GLUCOSE,RANDOM 147 mg/dL (70-110); POTASSIUM 4.2 mmol/L (3.5-5.1); SODIUM SERUM 138 mmol/L (136-145); UREA NITROGEN, BLOOD 29 mg/dL (7-18)
[2021-05-22 14:30] LABS: ALANINE AMINOTRANSFERASE 27 U/L (12-78); ALBUMIN 4.6 g/dL (3.4-5.0); ALKALINE PHOSPHATASE 124 U/L (46-116); ASPARTATE AMINOTRANSFERASE 23 U/L (15-37); BILIRUBIN,TOTAL 0.5 mg/dL (0.1-1.0); LIPASE 90 U/L (73-393); TOTAL PROTEIN, SERUM 8.4 g/dL (6.4-8.2)
[2021-05-22] MEDS ORDERED: METOCLOPRAMIDE HCL 5 MG/ML 2 ML VIAL IVP ONE (14:30)
[2021-05-22] MEDS ORDERED: SODIUM CHLORIDE 0.9% 1,000 ML IV ONE (14:30)
[2021-05-22] MEDS ORDERED: HYDROmorphone 2 MG/ML VIAL IVP ONE ×2 (15:30→16:15)
[2021-05-22 16:57] VITALS: BP 129/81
== END 2021-05-22 18:16 | disposition home or self-care (01) ==
LOC: EMS 13:02
DX: R11.2 Nausea with vomiting, unspecified (principal); R10.13 Epigastric pain; R53.1 Weakness; F32.9 Major depressive disorder, single episode, unspecified; E11.9 Type 2 diabetes mellitus without complications; K21.9 Gastro-esophageal reflux disease without esophagitis; E78.00 Pure hypercholesterolemia, unspecified; I10 Essential (primary) hypertension; F17.210 Nicotine dependence, cigarettes, uncomplicated; F12.90 Cannabis use, unspecified, uncomplicated; Z88.6 Allergy status to analgesic agent; Z88.5 Allergy status to narcotic agent; Z79.899 Other long term (current) drug therapy
CPT/HCPCS: 36415; 80053; 82962; 83690; 85025; 93005; 96361; 96374; 96375; 96376; 99284; J1170; J2765; J7030

== ENCOUNTER 2023-05-26 17:59 | Inpatient (IN) | payer MEDICAID ==
[~2023-05-26] VITALS: Ht 175.3 cm; Wt 101.2 kg
[~2023-05-26 17:59] MED LIST changes: +ALBU18HF12 IH; -ALLO-45 PO; +ALLO-97 PO; +BECL10.62 IH; +DOCU100C33 PO; +LORA10TA7 PO; +METO10TA3 PO; +OMEP20CA12 PO; +OXYC1TAB6 PO; -PRED20 PO; +SERT-162 PO; -SERT-439 PO; +SUCR1TAB PO; +[UNRECOGNIZED DRUG - CODE] PO
[2023-05-26] MEDS ORDERED: SODIUM CHLORIDE 0.9% 1,000 ML IV ONE (18:30)
[2023-05-26] MEDS ORDERED: 0.9% SODIUM CHLORIDE 10 ML SYRINGE IVP PRN ×2 (18:30→20:45)
[2023-05-26] MEDS ORDERED: PIPERACILLIN/TAZO 3.375 GM/D5W 50 ML IV ONE (18:30)
[2023-05-26] MEDS ORDERED: VANCOMYCIN HCL 1.25 GM in DEXTROSE 5%-WATER 250 ML IV ONE (18:30)
[2023-05-26] MEDS ORDERED: OxyCODONE HCL 5 MG IR TABLET PO ONE (18:30)
[2023-05-26] MEDS ORDERED: IOHEXOL 350 MG/ML 100 ML VIAL ONE ×2 (19:12→19:13)
[2023-05-26] MEDS ORDERED: SODIUM CHLORIDE 0.9% 100 ML ONE (19:13)
[2023-05-26 19:24] LABS: BASOPHILS % (AUTO) 0.7 % (0.0-2.0); EOSINOPHILS % (AUTO) 0.4 % (1.0-6.0); HEMOGLOBIN 12.2 g/dL (13.5-17.5); LYMPHOCYTES # (AUTO) 1.2 K/uL (1.0-4.8); LYMPHOCYTES % (AUTO) 8.4 % (22.0-44.0); MEAN CORPUSCULAR HEMOGLOBIN 26.5 pg (26.0-34.0); MEAN CORPUSCULAR HGB CONC 32.1 G/dL (31.0-37.0); MEAN CORPUSCULAR VOLUME 83 fL (80-100); MONOCYTES # (AUTO) 1.7 K/uL (0.1-1.0); MONOCYTES % (AUTO) 11.5 % (2.0-9.0); NEUTROPHILS # (AUTO) 11.5 K/uL (1.8-7.7); PLATELET COUNT (AUTO) 362 K/uL (150-450); RED CELL DISTRIBUTION WIDTH 16.3 % (11.5-14.5)
[2023-05-26 19:36] LABS: INR 1.1 (0.9-1.1); PROTHROMBIN TIME 11.6 SEC (9.4-11.6)
[2023-05-26 19:41] LABS: LACTIC ACID 1.2 mmol/L (0.4-2.0)
[2023-05-26 19:44] LABS: ANION GAP 16 mmol/L (8-16); CARBON DIOXIDE 26 mmol/L (22-29); CHLORIDE 100 mmol/L (98-107); GLUCOSE,RANDOM 103 mg/dL (70-110); POTASSIUM 3.7 mmol/L (3.5-5.1); SODIUM SERUM 142 mmol/L (136-145)
[2023-05-26 19:45] LABS: CALCIUM, TOTAL 8.6 mg/dL (8.8-10.5); GLOMERULAR FILTR. RATE CALC > 60 mL/min (>60)
[2023-05-26 20:10] LABS: ALANINE AMINOTRANSFERASE 12 U/L (12-78); ALKALINE PHOSPHATASE 108 U/L (46-116); ASPARTATE AMINOTRANSFERASE 22 U/L (15-37); BILIRUBIN,TOTAL 0.6 mg/dL (0.1-1.0); CREATINE KINASE, TOTAL ONLY 135 U/L (39-308); TOTAL PROTEIN, SERUM 7.6 g/dL (6.4-8.2)
[2023-05-26 20:19] LABS: COVID AG,FIA SOURCE NASOPHARYNGEAL
[2023-05-26 20:28] LABS: APPEARANCE,URINE CLEAR (CLEAR); BILIRUBIN,URINE NEGATIVE (NEGATIVE); GLUCOSE, URINE (UA) NEGATIVE (NEGATIVE); KETONES,URINE NEGATIVE (NEGATIVE); LEUKOCYTE ESTERASE ,URINE NEGATIVE (NEGATIVE); NITRATE,URINE NEGATIVE (NEGATIVE); OCCULT BLOOD,URINE NEGATIVE (NEGATIVE); PH,URINE 5.5 (5.0-8.0); PROTEIN,URINE NEGATIVE (NEGATIVE); SPECIFIC GRAVITIY, URINE 1.018 (1.003-1.030)
[2023-05-26 20:33] LABS: AMPHET/METH SCREEN,URINE NEGATIVE (NEGATIVE); BARBITURATE SCREEN, URINE NEGATIVE (NEGATIVE); BENZODIAZEPINES SCREEN,URINE NEGATIVE (NEGATIVE); CANNABINOID SCREEN,URINE POSITIVE (NEGATIVE); COCAINE SCREEN,URINE NEGATIVE (NEGATIVE); METHADONE SCREEN, URINE NEGATIVE (NEGATIVE); OPIATE SCREEN,URINE NEGATIVE (NEGATIVE); PHENCYCLIDINE SCREEN,URINE POSITIVE (NEGATIVE)
[2023-05-26 20:38] LABS: B-TYPE NATRIURETIC PEPTIDE 7 pg/mL (0-100)
[2023-05-26 20:42] VITALS: O2SAT 95
[2023-05-26] MEDS ORDERED: ONDANSETRON HCL 4 MG/2 ML VIAL IVP PRN ×2 (20:45→23:00)
[2023-05-26] MEDS ORDERED: ACETAMINOPHEN 325 MG TABLET PO PRN (20:45)
[2023-05-26 21:13] LABS: INFLUENZA TYPE A NEGATIVE FOR TYPE A (NEGATIVE); INFLUENZA TYPE B NEGATIVE FOR TYPE B (NEGATIVE)
[2023-05-26] MEDS ORDERED: DEXTROSE 50%-WATER 25 GM/50 ML SYRINGE IVP PRN (23:00)
[2023-05-26] MEDS ORDERED: BISACODYL 10 MG RECTAL RECTAL SUPPOSITORY PR PRN (23:00)
[2023-05-26] MEDS ORDERED: ALBUTEROL SULFATE HFA 90 MCG/PUFF 8 GM INHALER IH PRN (23:00)
[2023-05-27] MEDS ORDERED: VANCOMYCIN 1GM/WATER(PEG/NADA) 200 ML IV ONE
[2023-05-27 02:00] VITALS: BP 132/85; PULSE 92; RESP 20; TEMP 99
[2023-05-27] MEDS ORDERED: SODIUM CHLORIDE 0.9% 500 ML IV ONE (03:52)
[2023-05-27 06:00] VITALS: BP 129/80; PULSE 94; RESP 20; TEMP 98.2
[2023-05-27 06:07] LABS: GLUCOMETER DEV NAME(LOC) 6S.1B
[2023-05-27 07:13] LABS: BASOPHILS % (AUTO) 0.5 % (0.0-2.0); EOSINOPHILS % (AUTO) 0.3 % (1.0-6.0); HEMATOCRIT 36.9 % (41-53); LYMPHOCYTES # (AUTO) 0.9 K/uL (1.0-4.8); LYMPHOCYTES % (AUTO) 7.7 % (22.0-44.0); MEAN CORPUSCULAR HEMOGLOBIN 26.8 pg (26.0-34.0); MEAN CORPUSCULAR HGB CONC 32.5 G/dL (31.0-37.0); MEAN CORPUSCULAR VOLUME 83 fL (80-100); MONOCYTES # (AUTO) 1.5 K/uL (0.1-1.0); NEUTROPHILS # (AUTO) 9.7 K/uL (1.8-7.7); NEUTROPHILS % (AUTO) 79.5 % (40.0-70.0); PLATELET COUNT (AUTO) 332 K/uL (150-450); RED BLOOD CELL COUNT(AUTO) 4.48 MIL/uL (4.50-5.90); RED CELL DISTRIBUTION WIDTH 16.2 % (11.5-14.5)
[2023-05-27 07:31] LABS: ALANINE AMINOTRANSFERASE 11 U/L (12-78); ALBUMIN 2.8 g/dL (3.4-5.0); ALKALINE PHOSPHATASE 105 U/L (46-116); ANION GAP 10 mmol/L (8-16); ASPARTATE AMINOTRANSFERASE 19 U/L (15-37); CARBON DIOXIDE 26 mmol/L (22-29); CHLORIDE 102 mmol/L (98-107); CREATININE 0.85 mg/dL (0.60-1.30); GLOMERULAR FILTR. RATE CALC > 60 mL/min (>60); GLUCOSE,RANDOM 108 mg/dL (70-110); POTASSIUM 3.5 mmol/L (3.5-5.1); SODIUM SERUM 138 mmol/L (136-145); TOTAL PROTEIN, SERUM 7.3 g/dL (6.4-8.2)
[2023-05-27 08:13] VITALS: BP 130/84; PULSE 84; RESP 20; TEMP 99.1
[2023-05-27] MEDS: LISINOPRIL 20 MG TABLET PO SCH (08:53)
[2023-05-27] MEDS: ARIPiprazole 15 MG TABLET PO SCH (08:53)
[2023-05-27] MEDS: BusPIRone HCL 10 MG TABLET PO SCH ×3 (08:54→20:35)
[2023-05-27] MEDS: ALLOPURINOL 100 MG TABLET PO SCH ×2 (08:54→20:35)
[2023-05-27] MEDS: SERTRALINE HCL 100 MG TABLET PO SCH (08:55)
[2023-05-27] MEDS: DOCUSATE SODIUM 100 MG CAPSULE PO SCH ×2 (08:55→20:35)
[2023-05-27] MEDS: PANTOPRAZOLE SODIUM 40 MG DR TABLET PO SCH (08:55)
[2023-05-27] MEDS: HEPARIN SODIUM,PORCINE 5,000 UNITS/ML VIAL SQ SCH ×3 (08:56→17:25)
[2023-05-27] MEDS: VANCOMYCIN HCL 1.5 GM in DEXTROSE 5%-WATER 250 ML IV SCH ×2 (08:57→20:35)
[2023-05-27] MEDS: TraMADol HCL 50 MG TABLET PO PRN ×2 (09:55→20:35)
[2023-05-27 16:14] VITALS: BP 125/69; PULSE 76; RESP 20; TEMP 98.3
[2023-05-27 19:30] VITALS: BP 134/74; PULSE 107; RESP 18; TEMP 98
[2023-05-27 20:00] VITALS: O2SAT 100
[2023-05-27] MEDS: ATORVASTATIN CALCIUM 40 MG TABLET PO SCH (20:35)
[2023-05-27 23:01] LABS: GLUCOMETER DEV NAME(LOC) 6N.1
[2023-05-28] MEDS: ZOLPIDEM TARTRATE 5 MG TABLET PO PRN (00:07)
[2023-05-28] MEDS: HEPARIN SODIUM,PORCINE 5,000 UNITS/ML VIAL SQ SCH ×4 (00:08→23:46)
[2023-05-28 04:17] VITALS: BP 128/75; PULSE 102; RESP 19; TEMP 99.7
[2023-05-28] MEDS: TraMADol HCL 50 MG TABLET PO PRN ×2 (05:24→20:53)
[2023-05-28 05:41] LABS: GLUCOMETER DEV NAME(LOC) 6S.1B
[2023-05-28 05:51] LABS: GLUCOMETER DEV NAME(LOC) 6N.1
[2023-05-28 07:23] LABS: ANION GAP 8 mmol/L (8-16); CALCIUM, TOTAL 9.5 mg/dL (8.8-10.5); CARBON DIOXIDE 28 mmol/L (22-29); CHLORIDE 99 mmol/L (98-107); GLOMERULAR FILTR. RATE CALC > 60 mL/min (>60); GLUCOSE,RANDOM 120 mg/dL (70-110); POTASSIUM 3.5 mmol/L (3.5-5.1); SODIUM SERUM 135 mmol/L (136-145)
[2023-05-28 07:27] VITALS: BP 130/76; PULSE 99; RESP 19; TEMP 99.2
[2023-05-28] MEDS: ARIPiprazole 15 MG TABLET PO SCH (08:15)
[2023-05-28] MEDS: DOCUSATE SODIUM 100 MG CAPSULE PO SCH ×2 (08:16→20:53)
[2023-05-28] MEDS: PANTOPRAZOLE SODIUM 40 MG DR TABLET PO SCH (08:16)
[2023-05-28] MEDS: LISINOPRIL 20 MG TABLET PO SCH (08:16)
[2023-05-28] MEDS: ALLOPURINOL 100 MG TABLET PO SCH ×2 (08:16→20:53)
[2023-05-28] MEDS: BusPIRone HCL 10 MG TABLET PO SCH ×3 (08:17→20:53)
[2023-05-28] MEDS: SERTRALINE HCL 100 MG TABLET PO SCH (08:17)
[2023-05-28] MEDS: VANCOMYCIN HCL 1.5 GM in DEXTROSE 5%-WATER 250 ML IV SCH ×2 (08:19→20:52)
[2023-05-28 10:30] VITALS: O2SAT 96
[2023-05-28] MEDS ORDERED: INDOMETHACIN 25 MG CAPSULE PO PRN (12:30)
[2023-05-28] MEDS: INDOMETHACIN 50 MG CAPSULE PO PRN ×3 (13:34→23:46)
[2023-05-28 15:46] VITALS: BP 134/74; PULSE 94; RESP 20; TEMP 98.7
[2023-05-28 17:08] LABS: GLUCOMETER DEV NAME(LOC) 6S.1B
[2023-05-28] MEDS: INSULIN LISPRO 100 UNITS/ML SQ PRN (17:33)
[2023-05-28 19:30] VITALS: BP 116/70; PULSE 99; RESP 20; TEMP 99.1
[2023-05-28 19:57] LABS: GLUCOMETER DEV NAME(LOC) 6N.1
[2023-05-28 20:50] LABS: BASOPHILS % (AUTO) 0.2 % (0.0-2.0); EOSINOPHILS % (AUTO) 0.1 % (1.0-6.0); HEMATOCRIT 38.7 % (41-53); HEMOGLOBIN 12.4 g/dL (13.5-17.5); LYMPHOCYTES # (AUTO) 0.8 K/uL (1.0-4.8); LYMPHOCYTES % (AUTO) 4.4 % (22.0-44.0); MEAN CORPUSCULAR HEMOGLOBIN 26.3 pg (26.0-34.0); MEAN CORPUSCULAR HGB CONC 32.1 G/dL (31.0-37.0); MEAN CORPUSCULAR VOLUME 82 fL (80-100); MONOCYTES # (AUTO) 1.9 K/uL (0.1-1.0); MONOCYTES % (AUTO) 10.4 % (2.0-9.0); NEUTROPHILS # (AUTO) 15.7 K/uL (1.8-7.7); NEUTROPHILS % (AUTO) 84.9 % (40.0-70.0); PLATELET COUNT (AUTO) 355 K/uL (150-450); RED BLOOD CELL COUNT(AUTO) 4.72 MIL/uL (4.50-5.90); RED CELL DISTRIBUTION WIDTH 16.1 % (11.5-14.5)
[2023-05-28] MEDS: ATORVASTATIN CALCIUM 40 MG TABLET PO SCH (20:53)
[2023-05-28] MEDS: NYSTATIN 30 GM OINTMENT TP SCH (20:54)
[2023-05-28 21:00] VITALS: O2SAT 96
[2023-05-28 21:42] LABS: GLUCOMETER DEV NAME(LOC) 6S.2
[2023-05-29 04:00] VITALS: BP 111/63; PULSE 93; RESP 20; TEMP 98.9
[2023-05-29 06:28] LABS: GLUCOMETER DEV NAME(LOC) 4E.2
[2023-05-29 07:07] LABS: ANION GAP 11 mmol/L (8-16); CALCIUM, TOTAL 9.2 mg/dL (8.8-10.5); CARBON DIOXIDE 29 mmol/L (22-29); CHLORIDE 96 mmol/L (98-107); CREATININE 1.16 mg/dL (0.60-1.30); GLOMERULAR FILTR. RATE CALC > 60 mL/min (>60); GLUCOSE,RANDOM 115 mg/dL (70-110); POTASSIUM 3.3 mmol/L (3.5-5.1); SODIUM SERUM 136 mmol/L (136-145); VANCOMYCIN,RANDOM 15.4 mcg/mL (25.0-50.0)
[2023-05-29 08:00] VITALS: BP 111/68; PULSE 74; RESP 20; TEMP 97.8
[2023-05-29] MEDS: PANTOPRAZOLE SODIUM 40 MG DR TABLET PO SCH (08:35)
[2023-05-29] MEDS: BusPIRone HCL 10 MG TABLET PO SCH ×3 (08:35→19:44)
[2023-05-29] MEDS: DOCUSATE SODIUM 100 MG CAPSULE PO SCH ×2 (08:35→19:44)
[2023-05-29] MEDS: ARIPiprazole 15 MG TABLET PO SCH (08:36)
[2023-05-29] MEDS: VANCOMYCIN HCL 1.5 GM in DEXTROSE 5%-WATER 250 ML IV SCH (08:36)
[2023-05-29] MEDS: HEPARIN SODIUM,PORCINE 5,000 UNITS/ML VIAL SQ SCH ×3 (08:36→23:43)
[2023-05-29] MEDS: SERTRALINE HCL 100 MG TABLET PO SCH (08:37)
[2023-05-29] MEDS: ALLOPURINOL 100 MG TABLET PO SCH ×2 (08:37→19:44)
[2023-05-29] MEDS: NYSTATIN 30 GM OINTMENT TP SCH ×2 (08:37→19:44)
[2023-05-29] MEDS: LISINOPRIL 20 MG TABLET PO SCH (09:00)
[2023-05-29] MEDS ORDERED: POTASSIUM CHLORIDE 20 MEQ ER TABLET PO ONE (09:45)
[2023-05-29] MEDS ORDERED: COLCHICINE 0.6 MG TABLET PO PRN (10:30)
[2023-05-29] MEDS: INDOMETHACIN 50 MG CAPSULE PO PRN ×2 (11:03→19:43)
[2023-05-29 12:38] LABS: GLUCOMETER DEV NAME(LOC) 4E.2
[2023-05-29] MEDS: VANCOMYCIN 1GM/WATER(PEG/NADA) 200 ML IV SCH ×2 (16:04→23:43)
[2023-05-29 18:52] LABS: GLUCOMETER DEV NAME(LOC) 4E.2
[2023-05-29 19:30] VITALS: BP 105/63; PULSE 74; RESP 20; TEMP 98.4
[2023-05-29] MEDS: ATORVASTATIN CALCIUM 40 MG TABLET PO SCH (19:44)
[2023-05-29] MEDS: INSULIN LISPRO 100 UNITS/ML SQ PRN (21:20)
[2023-05-29] MEDS: HYDROmorphone HCL 2 MG TABLET PO PRN (21:27)
[2023-05-29] MEDS: LORATADINE 10 MG TABLET PO PRN (23:48)
[2023-05-30 05:12] VITALS: BP 112/56; PULSE 82; RESP 20; TEMP 97.9
[2023-05-30] MEDS: HYDROmorphone HCL 2 MG TABLET PO PRN ×3 (05:27→22:29)
[2023-05-30 06:41] LABS: GLUCOMETER DEV NAME(LOC) 4E.2
[2023-05-30 06:41] LABS: GLUCOMETER DEV NAME(LOC) 6S.1B
[2023-05-30 06:56] LABS: BASOPHILS % (AUTO) 0.1 % (0.0-2.0); EOSINOPHILS % (AUTO) 0.6 % (1.0-6.0); HEMOGLOBIN 11.5 g/dL (13.5-17.5); LYMPHOCYTES # (AUTO) 0.5 K/uL (1.0-4.8); LYMPHOCYTES % (AUTO) 3.3 % (22.0-44.0); MEAN CORPUSCULAR VOLUME 81 fL (80-100); MONOCYTES # (AUTO) 1.8 K/uL (0.1-1.0); NEUTROPHILS # (AUTO) 13.7 K/uL (1.8-7.7); PLATELET COUNT (AUTO) 358 K/uL (150-450); RED BLOOD CELL COUNT(AUTO) 4.44 MIL/uL (4.50-5.90); RED CELL DISTRIBUTION WIDTH 15.7 % (11.5-14.5)
[2023-05-30 07:12] LABS: ALANINE AMINOTRANSFERASE 12 U/L (12-78); ALKALINE PHOSPHATASE 113 U/L (46-116); ANION GAP 5 mmol/L (8-16); ASPARTATE AMINOTRANSFERASE 24 U/L (15-37); CALCIUM, TOTAL 9.2 mg/dL (8.8-10.5); CARBON DIOXIDE 29 mmol/L (22-29); CHLORIDE 113 mmol/L (98-107); CREATININE 1.07 mg/dL (0.60-1.30); GLOMERULAR FILTR. RATE CALC > 60 mL/min (>60); GLUCOSE,RANDOM 111 mg/dL (70-110); POTASSIUM 3.9 mmol/L (3.5-5.1); SODIUM SERUM 147 mmol/L (136-145)
[2023-05-30 07:56] LABS: URIC ACID 7.2 mg/dL (2.6-7.2)
[2023-05-30 08:28] LABS: C-REACTIVE PROTEIN QUANT 30.35 mg/dL (0.00-0.30)
[2023-05-30 08:35] VITALS: BP 112/69; PULSE 97; RESP 17; TEMP 98.7
[2023-05-30] MEDS: HEPARIN SODIUM,PORCINE 5,000 UNITS/ML VIAL SQ SCH ×3 (09:01→23:50)
[2023-05-30] MEDS: VANCOMYCIN 1GM/WATER(PEG/NADA) 200 ML IV SCH ×3 (09:03→23:49)
[2023-05-30] MEDS: ALLOPURINOL 100 MG TABLET PO SCH ×2 (09:07→20:37)
[2023-05-30] MEDS: LISINOPRIL 20 MG TABLET PO SCH (09:07)
[2023-05-30] MEDS: BusPIRone HCL 10 MG TABLET PO SCH ×3 (09:07→20:36)
[2023-05-30] MEDS: SERTRALINE HCL 100 MG TABLET PO SCH (09:07)
[2023-05-30] MEDS: PANTOPRAZOLE SODIUM 40 MG DR TABLET PO SCH (09:07)
[2023-05-30] MEDS: DOCUSATE SODIUM 100 MG CAPSULE PO SCH ×2 (09:07→20:36)
[2023-05-30] MEDS: ARIPiprazole 15 MG TABLET PO SCH (09:07)
[2023-05-30] MEDS: INDOMETHACIN 50 MG CAPSULE PO PRN ×2 (09:18→20:25)
[2023-05-30 14:08] LABS: GLUCOMETER DEV NAME(LOC) 6N.1
[2023-05-30] MEDS: NYSTATIN 30 GM OINTMENT TP SCH ×2 (14:14→20:37)
[2023-05-30 15:16] VITALS: BP 103/60; PULSE 90; RESP 20; TEMP 97.6
[2023-05-30 15:17] VITALS: O2SAT 98
[2023-05-30] MEDS ORDERED: GADOTERATE MEGLUMINE 10 MMOL/20 ML VIAL IVP ONE (16:24)
[2023-05-30] MEDS: INSULIN LISPRO 100 UNITS/ML SQ PRN (19:16)
[2023-05-30 19:38] LABS: GLUCOMETER DEV NAME(LOC) 6S.2
[2023-05-30 19:56] VITALS: BP 115/64; PULSE 85; RESP 18; TEMP 98.6
[2023-05-30] MEDS: ATORVASTATIN CALCIUM 40 MG TABLET PO SCH (20:37)
[2023-05-30 21:00] VITALS: O2SAT 98
[2023-05-30] MEDS: LORATADINE 10 MG TABLET PO PRN (23:59)
[2023-05-31] MEDS: INDOMETHACIN 50 MG CAPSULE PO PRN ×2 (05:13→16:42)
[2023-05-31 05:17] VITALS: BP 90/61; PULSE 75; RESP 18; TEMP 98.1
[2023-05-31 06:23] LABS: ANION GAP 13 mmol/L (8-16); CALCIUM, TOTAL 9.3 mg/dL (8.8-10.5); CARBON DIOXIDE 29 mmol/L (22-29); CHLORIDE 98 mmol/L (98-107); CREATININE 1.15 mg/dL (0.60-1.30); GLOMERULAR FILTR. RATE CALC > 60 mL/min (>60); GLUCOSE,RANDOM 116 mg/dL (70-110); SODIUM SERUM 140 mmol/L (136-145); VANCOMYCIN,RANDOM 24.7 mcg/mL (25.0-50.0)
[2023-05-31 07:58] LABS: GLUCOMETER DEV NAME(LOC) 6N.1
[2023-05-31 07:58] LABS: GLUCOMETER DEV NAME(LOC) 6S.2
[2023-05-31] MEDS: VANCOMYCIN 1GM/WATER(PEG/NADA) 200 ML IV SCH (08:32)
[2023-05-31] MEDS: ARIPiprazole 15 MG TABLET PO SCH (08:33)
[2023-05-31] MEDS: BusPIRone HCL 10 MG TABLET PO SCH ×3 (08:34→20:08)
[2023-05-31] MEDS: DOCUSATE SODIUM 100 MG CAPSULE PO SCH ×2 (08:34→20:08)
[2023-05-31] MEDS: HEPARIN SODIUM,PORCINE 5,000 UNITS/ML VIAL SQ SCH ×3 (08:34→23:31)
[2023-05-31] MEDS: ALLOPURINOL 100 MG TABLET PO SCH ×2 (08:34→20:08)
[2023-05-31] MEDS: SERTRALINE HCL 100 MG TABLET PO SCH (08:35)
[2023-05-31] MEDS: LISINOPRIL 20 MG TABLET PO SCH (08:35)
[2023-05-31] MEDS: PANTOPRAZOLE SODIUM 40 MG DR TABLET PO SCH (08:36)
[2023-05-31] MEDS: NYSTATIN 30 GM OINTMENT TP SCH ×2 (08:41→20:08)
[2023-05-31] MEDS: HYDROmorphone HCL 2 MG TABLET PO PRN ×2 (11:01→20:04)
[2023-05-31 11:08] VITALS: BP 110/60; PULSE 82; RESP 20
[2023-05-31 15:26] VITALS: BP 111/66; PULSE 85; RESP 20; TEMP 97.8
[2023-05-31 18:48] LABS: GLUCOMETER DEV NAME(LOC) 4E.2
[2023-05-31 19:15] VITALS: BP 108/58; PULSE 84; RESP 20; TEMP 98.6
[2023-05-31 20:02] LABS: GLUCOMETER DEV NAME(LOC) 6N.1
[2023-05-31] MEDS: ATORVASTATIN CALCIUM 40 MG TABLET PO SCH (20:08)
[2023-05-31 20:30] VITALS: O2SAT 98
[2023-05-31] MEDS: INSULIN LISPRO 100 UNITS/ML SQ PRN (21:02)
[2023-05-31] MEDS: VANCOMYCIN HCL 750 MG in DEXTROSE 5%-WATER 250 ML IV SCH (23:30)
[2023-06-01 04:23] VITALS: BP 126/67; PULSE 77; RESP 20; TEMP 97.6
[2023-06-01] MEDS: HYDROmorphone HCL 2 MG TABLET PO PRN ×2 (04:31→20:49)
[2023-06-01 05:48] LABS: GLUCOMETER DEV NAME(LOC) 6S.2
[2023-06-01 05:57] LABS: ANION GAP 11 mmol/L (8-16); CALCIUM, TOTAL 9.4 mg/dL (8.8-10.5); CARBON DIOXIDE 30 mmol/L (22-29); CHLORIDE 101 mmol/L (98-107); CREATININE 1.11 mg/dL (0.60-1.30); GLOMERULAR FILTR. RATE CALC > 60 mL/min (>60); GLUCOSE,RANDOM 119 mg/dL (70-110); POTASSIUM 3.9 mmol/L (3.5-5.1); SODIUM SERUM 142 mmol/L (136-145)
[2023-06-01 06:03] LABS: GLUCOMETER DEV NAME(LOC) 6S.2
[2023-06-01] MEDS: ARIPiprazole 15 MG TABLET PO SCH (08:27)
[2023-06-01] MEDS: HEPARIN SODIUM,PORCINE 5,000 UNITS/ML VIAL SQ SCH ×3 (08:28→22:56)
[2023-06-01] MEDS: LISINOPRIL 20 MG TABLET PO SCH (08:28)
[2023-06-01] MEDS: PANTOPRAZOLE SODIUM 40 MG DR TABLET PO SCH (08:29)
[2023-06-01] MEDS: DOCUSATE SODIUM 100 MG CAPSULE PO SCH ×2 (08:29→20:49)
[2023-06-01] MEDS: BusPIRone HCL 10 MG TABLET PO SCH ×3 (08:29→20:49)
[2023-06-01] MEDS: ALLOPURINOL 100 MG TABLET PO SCH ×2 (08:29→20:49)
[2023-06-01 08:31] VITALS: BP 105/67; PULSE 97; RESP 20; TEMP 98.6
[2023-06-01] MEDS: SERTRALINE HCL 100 MG TABLET PO SCH (08:31)
[2023-06-01] MEDS: VANCOMYCIN HCL 750 MG in DEXTROSE 5%-WATER 250 ML IV SCH ×3 (08:33→22:56)
[2023-06-01] MEDS: NYSTATIN 30 GM OINTMENT TP SCH ×2 (08:40→21:03)
[2023-06-01] MEDS: INDOMETHACIN 50 MG CAPSULE PO PRN (11:11)
[2023-06-01] MEDS: INSULIN LISPRO 100 UNITS/ML SQ PRN ×2 (12:05→21:02)
[2023-06-01 14:16] VITALS: O2SAT 98
[2023-06-01] MEDS: CLOTRIMAZOLE 1% 15 GM CREAM TP SCH ×2 (14:59→20:56)
[2023-06-01] MEDS: TraMADol HCL 50 MG TABLET PO PRN (15:00)
[2023-06-01 16:56] VITALS: BP 112/71; PULSE 82; RESP 20; TEMP 98.7
[2023-06-01] MEDS: MAGNESIUM HYDROXIDE SUSPENSION 30 ML UDCUP PO PRN (18:33)
[2023-06-01 20:30] VITALS: BP 123/71; PULSE 81; RESP 20; TEMP 98.5
[2023-06-01] MEDS: ATORVASTATIN CALCIUM 40 MG TABLET PO SCH (20:49)
[2023-06-01] MEDS: MUPIROCIN CALCIUM 2% 22 GM OINTMENT NASAL SCH (20:50)
[2023-06-01 21:41] VITALS: O2SAT 97
[2023-06-02 00:18] VITALS: BP 122/65; PULSE 84; RESP 18; TEMP 97.9
[2023-06-02 01:52] LABS: GLUCOMETER DEV NAME(LOC) 6N.1
[2023-06-02 01:52] LABS: GLUCOMETER DEV NAME(LOC) 6N.1
[2023-06-02 01:52] LABS: GLUCOMETER DEV NAME(LOC) 6N.1
[2023-06-02] MEDS: INDOMETHACIN 50 MG CAPSULE PO PRN ×2 (03:48→20:50)
[2023-06-02 05:10] VITALS: BP 145/89; PULSE 87; RESP 18; TEMP 98.8
[2023-06-02 06:36] LABS: BASOPHILS % (AUTO) 0.7 % (0.0-2.0); EOSINOPHILS % (AUTO) 1.5 % (1.0-6.0); HEMATOCRIT 38.3 % (41-53); HEMOGLOBIN 12.5 g/dL (13.5-17.5); LYMPHOCYTES % (AUTO) 9.1 % (22.0-44.0); MEAN CORPUSCULAR HEMOGLOBIN 26.5 pg (26.0-34.0); MEAN CORPUSCULAR HGB CONC 32.7 G/dL (31.0-37.0); MEAN CORPUSCULAR VOLUME 81 fL (80-100); MONOCYTES # (AUTO) 1.4 K/uL (0.1-1.0); MONOCYTES % (AUTO) 12.3 % (2.0-9.0); NEUTROPHILS # (AUTO) 8.4 K/uL (1.8-7.7); NEUTROPHILS % (AUTO) 76.4 % (40.0-70.0); PLATELET COUNT (AUTO) 479 K/uL (150-450); RED BLOOD CELL COUNT(AUTO) 4.73 MIL/uL (4.50-5.90); RED CELL DISTRIBUTION WIDTH 16.1 % (11.5-14.5)
[2023-06-02 06:54] LABS: ALANINE AMINOTRANSFERASE 19 U/L (12-78); ALBUMIN 2.2 g/dL (3.4-5.0); ALKALINE PHOSPHATASE 128 U/L (46-116); ANION GAP 7 mmol/L (8-16); ASPARTATE AMINOTRANSFERASE 38 U/L (15-37); BILIRUBIN,TOTAL 0.6 mg/dL (0.1-1.0); C-REACTIVE PROTEIN QUANT 22.66 mg/dL (0.00-0.30); CALCIUM, TOTAL 9.8 mg/dL (8.8-10.5); CARBON DIOXIDE 29 mmol/L (22-29); CHLORIDE 99 mmol/L (98-107); CREATININE 1.09 mg/dL (0.60-1.30); GLOMERULAR FILTR. RATE CALC > 60 mL/min (>60); GLUCOSE,RANDOM 137 mg/dL (70-110); POTASSIUM 3.7 mmol/L (3.5-5.1); SODIUM SERUM 135 mmol/L (136-145); TOTAL PROTEIN, SERUM 7.7 g/dL (6.4-8.2); VANCOMYCIN,RANDOM 18.6 mcg/mL (25.0-50.0)
[2023-06-02 07:30] VITALS: BP 109/66; PULSE 81; RESP 18; TEMP 97.6
[2023-06-02] MEDS: VANCOMYCIN HCL 750 MG in DEXTROSE 5%-WATER 250 ML IV SCH (09:01)
[2023-06-02] MEDS: HEPARIN SODIUM,PORCINE 5,000 UNITS/ML VIAL SQ SCH ×2 (09:04→15:33)
[2023-06-02] MEDS: LISINOPRIL 20 MG TABLET PO SCH (09:05)
[2023-06-02] MEDS: SERTRALINE HCL 100 MG TABLET PO SCH (09:05)
[2023-06-02] MEDS: PANTOPRAZOLE SODIUM 40 MG DR TABLET PO SCH (09:05)
[2023-06-02] MEDS: BusPIRone HCL 10 MG TABLET PO SCH ×3 (09:05→20:48)
[2023-06-02] MEDS: DOCUSATE SODIUM 100 MG CAPSULE PO SCH ×2 (09:05→20:48)
[2023-06-02] MEDS: ALLOPURINOL 100 MG TABLET PO SCH ×2 (09:05→20:49)
[2023-06-02] MEDS: ARIPiprazole 15 MG TABLET PO SCH (09:05)
[2023-06-02] MEDS: NYSTATIN 30 GM OINTMENT TP SCH ×2 (09:08→21:26)
[2023-06-02] MEDS: MUPIROCIN CALCIUM 2% 22 GM OINTMENT NASAL SCH ×2 (09:09→21:27)
[2023-06-02] MEDS: CLOTRIMAZOLE 1% 15 GM CREAM TP SCH ×2 (09:19→21:26)
[2023-06-02] MEDS ORDERED: OMEP40CA21 PO (11:17)
[2023-06-02] MEDS: PredniSONE 20 MG TABLET PO SCH (11:38)
[2023-06-02 13:43] LABS: GLUCOMETER DEV NAME(LOC) 6N.1
[2023-06-02 13:43] LABS: GLUCOMETER DEV NAME(LOC) 6N.1
[2023-06-02] MEDS: HYDROmorphone HCL 2 MG TABLET PO PRN (15:39)
[2023-06-02 15:46] VITALS: BP 118/76; PULSE 85; RESP 19; TEMP 98
[2023-06-02] MEDS: INSULIN LISPRO 100 UNITS/ML SQ PRN ×2 (18:23→22:09)
[2023-06-02 19:16] VITALS: BP 121/79; PULSE 81; RESP 20; TEMP 98.6
[2023-06-02] MEDS: ATORVASTATIN CALCIUM 40 MG TABLET PO SCH (20:47)
[2023-06-02] MEDS: VANCOMYCIN 1GM/WATER(PEG/NADA) 200 ML IV SCH (20:54)
[2023-06-02 21:00] VITALS: O2SAT 98
[2023-06-03] MEDS: HYDROmorphone HCL 2 MG TABLET PO PRN ×3 (01:21→21:39)
[2023-06-03 04:20] VITALS: BP 126/77; PULSE 69; RESP 18; TEMP 97.9
[2023-06-03] MEDS: INDOMETHACIN 50 MG CAPSULE PO PRN ×2 (06:21→20:43)
[2023-06-03 06:52] LABS: GLUCOMETER DEV NAME(LOC) 4E.2
[2023-06-03 07:13] LABS: ANION GAP 6 mmol/L (8-16); CALCIUM, TOTAL 9.6 mg/dL (8.8-10.5); CARBON DIOXIDE 32 mmol/L (22-29); CHLORIDE 101 mmol/L (98-107); CREATININE 1.11 mg/dL (0.60-1.30); GLOMERULAR FILTR. RATE CALC > 60 mL/min (>60); GLUCOSE,RANDOM 105 mg/dL (70-110); POTASSIUM 3.7 mmol/L (3.5-5.1); SODIUM SERUM 139 mmol/L (136-145)
[2023-06-03 08:29] VITALS: BP 141/87; PULSE 63; RESP 18; TEMP 97.8
[2023-06-03] MEDS: VANCOMYCIN 1GM/WATER(PEG/NADA) 200 ML IV SCH ×2 (09:09→20:04)
[2023-06-03] MEDS: HEPARIN SODIUM,PORCINE 5,000 UNITS/ML VIAL SQ SCH ×4 (09:10→23:17)
[2023-06-03] MEDS: BusPIRone HCL 10 MG TABLET PO SCH ×3 (09:11→20:44)
[2023-06-03] MEDS: ARIPiprazole 15 MG TABLET PO SCH (09:11)
[2023-06-03] MEDS: SERTRALINE HCL 100 MG TABLET PO SCH (09:12)
[2023-06-03] MEDS: PredniSONE 20 MG TABLET PO SCH (09:12)
[2023-06-03] MEDS: ALLOPURINOL 100 MG TABLET PO SCH ×2 (09:13→20:42)
[2023-06-03] MEDS: PANTOPRAZOLE SODIUM 40 MG DR TABLET PO SCH (09:14)
[2023-06-03] MEDS: LISINOPRIL 20 MG TABLET PO SCH (09:14)
[2023-06-03] MEDS: DOCUSATE SODIUM 100 MG CAPSULE PO SCH ×2 (09:14→20:46)
[2023-06-03] MEDS: CLOTRIMAZOLE 1% 15 GM CREAM TP SCH ×2 (09:16→21:00)
[2023-06-03] MEDS: NYSTATIN 30 GM OINTMENT TP SCH ×2 (09:16→20:45)
[2023-06-03] MEDS: MUPIROCIN CALCIUM 2% 22 GM OINTMENT NASAL SCH ×2 (09:17→21:00)
[2023-06-03] MEDS: MAGNESIUM HYDROXIDE SUSPENSION 30 ML UDCUP PO PRN (09:18)
[2023-06-03 10:09] LABS: BASOPHILS % (AUTO) 0.4 % (0.0-2.0); EOSINOPHILS % (AUTO) 0.8 % (1.0-6.0); HEMATOCRIT 39.2 % (41-53); HEMOGLOBIN 12.4 g/dL (13.5-17.5); LYMPHOCYTES # (AUTO) 1.5 K/uL (1.0-4.8); MEAN CORPUSCULAR HEMOGLOBIN 25.9 pg (26.0-34.0); MEAN CORPUSCULAR HGB CONC 31.7 G/dL (31.0-37.0); MEAN CORPUSCULAR VOLUME 82 fL (80-100); MONOCYTES # (AUTO) 1.4 K/uL (0.1-1.0); MONOCYTES % (AUTO) 12.7 % (2.0-9.0); NEUTROPHILS # (AUTO) 8.2 K/uL (1.8-7.7); NEUTROPHILS % (AUTO) 73.1 % (40.0-70.0); PLATELET COUNT (AUTO) 549 K/uL (150-450); RED BLOOD CELL COUNT(AUTO) 4.81 MIL/uL (4.50-5.90); RED CELL DISTRIBUTION WIDTH 16.3 % (11.5-14.5)
[2023-06-03 10:37] LABS: GLUCOMETER DEV NAME(LOC) 6N.2B
[2023-06-03 15:21] VITALS: BP 122/79; PULSE 89; RESP 17; TEMP 98.7
[2023-06-03 18:07] LABS: GLUCOMETER DEV NAME(LOC) 6N.2B
[2023-06-03 20:13] VITALS: BP 108/74; PULSE 64; RESP 18; TEMP 98.7
[2023-06-03] MEDS ORDERED: SODIUM CHLORIDE 0.9% 500 ML IV ONE (20:36)
[2023-06-03] MEDS: ZOLPIDEM TARTRATE 5 MG TABLET PO PRN ×2 (20:42→23:16)
[2023-06-03] MEDS: ATORVASTATIN CALCIUM 40 MG TABLET PO SCH (20:44)
[2023-06-03] MEDS: INSULIN LISPRO 100 UNITS/ML SQ PRN (21:20)
[2023-06-04 02:17] LABS: GLUCOMETER DEV NAME(LOC) 6N.1
[2023-06-04 02:17] LABS: GLUCOMETER DEV NAME(LOC) 6N.1
[2023-06-04 04:00] VITALS: BP 130/75; PULSE 57; RESP 16; TEMP 98.3
[2023-06-04] MEDS: INDOMETHACIN 50 MG CAPSULE PO PRN ×2 (05:10→13:41)
[2023-06-04 05:38] LABS: GLUCOMETER DEV NAME(LOC) 4E.2
[2023-06-04 06:39] LABS: EOSINOPHILS % (AUTO) 2.3 % (1.0-6.0); HEMATOCRIT 37.7 % (41-53); HEMOGLOBIN 12.5 g/dL (13.5-17.5); LYMPHOCYTES # (AUTO) 1.9 K/uL (1.0-4.8); MEAN CORPUSCULAR HEMOGLOBIN 26.8 pg (26.0-34.0); MEAN CORPUSCULAR HGB CONC 33.1 G/dL (31.0-37.0); MEAN CORPUSCULAR VOLUME 81 fL (80-100); MONOCYTES # (AUTO) 1.3 K/uL (0.1-1.0); MONOCYTES % (AUTO) 12.5 % (2.0-9.0); NEUTROPHILS # (AUTO) 6.9 K/uL (1.8-7.7); NEUTROPHILS % (AUTO) 66.2 % (40.0-70.0); PLATELET COUNT (AUTO) 542 K/uL (150-450); RED BLOOD CELL COUNT(AUTO) 4.65 MIL/uL (4.50-5.90); RED CELL DISTRIBUTION WIDTH 16.3 % (11.5-14.5)
[2023-06-04 07:14] LABS: ANION GAP 6 mmol/L (8-16); CALCIUM, TOTAL 9.7 mg/dL (8.8-10.5); CARBON DIOXIDE 30 mmol/L (22-29); CHLORIDE 99 mmol/L (98-107); CREATININE 1.08 mg/dL (0.60-1.30); GLOMERULAR FILTR. RATE CALC > 60 mL/min (>60); GLUCOSE,RANDOM 110 mg/dL (70-110); POTASSIUM 3.7 mmol/L (3.5-5.1); SODIUM SERUM 135 mmol/L (136-145)
[2023-06-04 07:52] VITALS: BP 126/76; PULSE 60; RESP 18; TEMP 98.4
[2023-06-04 07:57] LABS: GLUCOMETER DEV NAME(LOC) 6S.2
[2023-06-04] MEDS: HEPARIN SODIUM,PORCINE 5,000 UNITS/ML VIAL SQ SCH ×2 (08:36→15:42)
[2023-06-04] MEDS: VANCOMYCIN 1GM/WATER(PEG/NADA) 200 ML IV SCH (08:36)
[2023-06-04] MEDS: DOCUSATE SODIUM 100 MG CAPSULE PO SCH (08:39)
[2023-06-04] MEDS: PANTOPRAZOLE SODIUM 40 MG DR TABLET PO SCH (08:39)
[2023-06-04] MEDS: CLOTRIMAZOLE 1% 15 GM CREAM TP SCH (08:39)
[2023-06-04] MEDS: BusPIRone HCL 10 MG TABLET PO SCH ×2 (08:39→15:41)
[2023-06-04] MEDS: ALLOPURINOL 100 MG TABLET PO SCH (08:40)
[2023-06-04] MEDS: LISINOPRIL 20 MG TABLET PO SCH (08:40)
[2023-06-04] MEDS: MUPIROCIN CALCIUM 2% 22 GM OINTMENT NASAL SCH (08:40)
[2023-06-04] MEDS: ARIPiprazole 15 MG TABLET PO SCH (08:40)
[2023-06-04] MEDS: SERTRALINE HCL 100 MG TABLET PO SCH (08:41)
[2023-06-04] MEDS: NYSTATIN 30 GM OINTMENT TP SCH (08:41)
[2023-06-04] MEDS: PredniSONE 20 MG TABLET PO SCH (08:41)
[2023-06-04] MEDS: HYDROmorphone HCL 2 MG TABLET PO PRN (08:49)
[2023-06-04] MEDS ORDERED: ALLO-97 PO (12:18)
[2023-06-04] MEDS ORDERED: COLC0.6T73 PO (12:18)
[2023-06-04] MEDS ORDERED: TRAM-559 PO (12:18)
[2023-06-04] MEDS ORDERED: SULF-261 PO (12:18)
[2023-06-04] MEDS ORDERED: PRED-554 PO (12:18)
[2023-06-04] MEDS ORDERED: NYST30OI6 TP (12:25)
[2023-06-04 15:28] VITALS: BP 130/72; PULSE 64; RESP 20; TEMP 98.2
[2023-06-04] MEDS: INSULIN LISPRO 100 UNITS/ML SQ PRN (16:35)
[2023-06-04 16:47] LABS: GLUCOMETER DEV NAME(LOC) 4E.2
[2023-06-04 20:02] LABS: GLUCOMETER DEV NAME(LOC) 6S.2
== END 2023-06-04 18:28 | disposition home or self-care (01) | DRG 720 ==
LOC: EMS 18:35 → 6N 05-27 00:51
PROVIDERS: ADMIT Internal Medicine; ATTEND Internal Medicine
DX: A41.9 Sepsis, unspecified organism (principal); E44.1 Mild protein-calorie malnutrition; E11.43 Type 2 diabetes mellitus with diabetic autonomic (poly)neuropathy; K31.84 Gastroparesis; L03.311 Cellulitis of abdominal wall; L03.115 Cellulitis of right lower limb; E78.00 Pure hypercholesterolemia, unspecified; Z20.822 Contact with and (suspected) exposure to COVID-19; F17.210 Nicotine dependence, cigarettes, uncomplicated; J44.9 Chronic obstructive pulmonary disease, unspecified; M1A.9XX1 Chronic gout, unspecified, with tophus (tophi); F32.A Depression, unspecified; M25.462 Effusion, left knee; L03.116 Cellulitis of left lower limb; I10 Essential (primary) hypertension; K21.9 Gastro-esophageal reflux disease without esophagitis; M06.9 Rheumatoid arthritis, unspecified; Z99.3 Dependence on wheelchair; Z88.6 Allergy status to analgesic agent; Z88.5 Allergy status to narcotic agent; Z88.8 Allergy status to other drugs, medicaments and biological substances; Z79.84 Long term (current) use of oral hypoglycemic drugs; Z79.899 Other long term (current) drug therapy; Z59.00 Homelessness unspecified
CPT/HCPCS: 71045; 73723; 74177; 80048; 80053; 80202; 80307; 81003; 82550; 82962; 83036; 83605; 83880; 84145; 84484; 84550; 85025; 85610; 86140; 87040; 87081; 87804; 93005; 97110; 97116; 97163; 97167; 97530; 97535; 99285; G0480; J1644; J2543; J3370; J7030; J7040; J7050; J7060; Q9967; 36415-L1; 36415-TC

== ENCOUNTER 2024-08-12 21:22 | Emergency (ER) | payer MEDICAID ==
[~2024-08-12] VITALS: Ht 175.3 cm; Wt 113.6 kg
[~2024-08-12 21:22] MED LIST changes: +COLC-3 PO; -COLC0.6T73 PO; +NYST30OI6 TP; -OMEP20CA12 PO; +OMEP40CA21 PO; -OXYC1TAB6 PO; +PRED-554 PO; -SUCR1TAB PO; +SUCR1TAB2 PO; +SULF-261 PO; +TRAM50TA5 PO; -[UNRECOGNIZED DRUG - CODE] PO
[2024-08-12 21:34] VITALS: TEMP 98.5
[2024-08-12 22:11] LABS: BASOPHILS % (AUTO) 1.1 % (0.0-2.0); EOSINOPHILS % (AUTO) 4.8 % (1.0-6.0); HEMATOCRIT 37.9 % (41-53); HEMOGLOBIN 12.5 g/dL (13.5-17.5); LYMPHOCYTES # (AUTO) 2.3 K/uL (1.0-4.8); LYMPHOCYTES % (AUTO) 27.8 % (22.0-44.0); MEAN CORPUSCULAR VOLUME 85 fL (80-100); MONOCYTES # (AUTO) 0.6 K/uL (0.1-1.0); MONOCYTES % (AUTO) 6.9 % (2.0-9.0); NEUTROPHILS # (AUTO) 4.9 K/uL (1.8-7.7); NEUTROPHILS % (AUTO) 59.4 % (40.0-70.0); PLATELET COUNT (AUTO) 520 K/uL (150-450); RED BLOOD CELL COUNT(AUTO) 4.47 MIL/uL (4.50-5.90); RED CELL DISTRIBUTION WIDTH 13.9 % (11.5-14.5); WHITE BLOOD COUNT (AUTO) 8.3 K/uL (4.5-11.0)
[2024-08-12 22:18] LABS: ANION GAP 6 mmol/L (8-16); CALCIUM, TOTAL 8.8 mg/dL (8.8-10.5); CARBON DIOXIDE 33 mmol/L (22-29); CHLORIDE 101 mmol/L (98-107); CREATININE 1.14 mg/dL (0.60-1.30); GLOMERULAR FILTR. RATE CALC > 60 mL/min (>60); GLUCOSE,RANDOM 126 mg/dL (70-110); POTASSIUM 3.8 mmol/L (3.5-5.1); SODIUM SERUM 140 mmol/L (136-145); UREA NITROGEN, BLOOD 19 mg/dL (7-18)
[2024-08-12 22:27] LABS: TROPONIN I-HIGH SENSITIVITY 8 ng/L (<76)
[2024-08-13] MEDS: OxyCODONE HCL 5 MG IR TABLET PO ONE (00:50)
[2024-08-13 00:57] LABS: COVID AG,FIA SOURCE NASAL SWAB
[2024-08-13 01:00] VITALS: BP 121/65; PULSE 69; RESP 17; O2SAT 97
[2024-08-13 01:02] LABS: APPEARANCE,URINE CLEAR (CLEAR); BILIRUBIN,URINE NEGATIVE (NEGATIVE); COLOR,URINE YELLOW (YELLOW); GLUCOSE, URINE (UA) NEGATIVE (NEGATIVE); KETONES,URINE NEGATIVE (NEGATIVE); LEUKOCYTE ESTERASE ,URINE NEGATIVE (NEGATIVE); NITRATE,URINE NEGATIVE (NEGATIVE); OCCULT BLOOD,URINE NEGATIVE (NEGATIVE); PROTEIN,URINE NEGATIVE (NEGATIVE); SPECIFIC GRAVITIY, URINE 1.024 (1.003-1.030)
[2024-08-13 01:09] LABS: ALCOHOL, URINE DRUG SCREEN NEGATIVE (NEGATIVE); AMPHET/METH SCREEN,URINE NEGATIVE (NEGATIVE); BARBITURATE SCREEN, URINE NEGATIVE (NEGATIVE); BENZODIAZEPINES SCREEN,URINE NEGATIVE (NEGATIVE); CANNABINOID SCREEN,URINE POSITIVE (NEGATIVE); COCAINE SCREEN,URINE NEGATIVE (NEGATIVE); METHADONE SCREEN, URINE NEGATIVE (NEGATIVE); OPIATE SCREEN,URINE NEGATIVE (NEGATIVE); PHENCYCLIDINE SCREEN,URINE POSITIVE (NEGATIVE)
[2024-08-13 01:18] LABS: INFLUENZA TYPE A NEGATIVE FOR TYPE A (NEGATIVE); INFLUENZA TYPE B NEGATIVE FOR TYPE B (NEGATIVE)
[2024-08-13 01:19] LABS: SARS-COV2 (COVID) ANTIGEN,FIA Negative (Negative)
== END 2024-08-13 02:53 | disposition home or self-care (01) ==
LOC: EMS 21:22
DX: M79.10 Myalgia, unspecified site (principal); K21.9 Gastro-esophageal reflux disease without esophagitis; E11.9 Type 2 diabetes mellitus without complications; I10 Essential (primary) hypertension; F17.210 Nicotine dependence, cigarettes, uncomplicated; F12.90 Cannabis use, unspecified, uncomplicated; Z88.6 Allergy status to analgesic agent; Z88.5 Allergy status to narcotic agent; Z20.822 Contact with and (suspected) exposure to COVID-19
CPT/HCPCS: 71045; 80048; 80307; 81003; 84484; 85025; 87804; 93005; 99285; 36415-L1; 36415-TC